=== PATIENT | female | born 1970 | race Caucasian/White ===

== ENCOUNTER → 2018-01-27 11:41 | Outpatient (CLI) | payer BC, SELFPAY ==
[2018-01-27 15:54] LABS: Estradiol < 11.0 pg/mL
[2018-01-27 16:03] LABS: Progesterone Level 19.34 ng/mL (See Comment)
[2018-02-02 08:55] LABS: HPV Reflexed? NOT INDICATED
== END ==
PROVIDERS: Family Provider Nurse Practitioner Family; PCP Nurse Practitioner Family; Visit Provider Obstetrics & Gynecology
DX: Z78.0 Asymptomatic menopausal state (principal); Z12.4 Encounter for screening for malignant neoplasm of cervix
CPT/HCPCS: 36415; 82670; 84144; 88175; G0145

== ENCOUNTER → 2018-05-27 07:25 | Outpatient (CLI) | payer BC, SELFPAY ==
--- NOTE | 2018-05-27 07:28 | BI_ITS ---
MAMMOGRAPHY - BILATERAL SCREENING REASON FOR EXAM: Female, 48 years old. Routine annual screening examination. PERTINENT HISTORY: Non-contributory. TECHNIQUE: Digital bilateral breast abner (3D mammographic acquisition) in the CC and MLO projections. 2-D mediolateral oblique (MLO) and craniocaudad (CC) views of both breasts were obtained. CAD: Full Field Digital Mammography with Computer Added Detection was performed. COMPARISON: Comparison is made with prior study dated May 19, 2017. FINDINGS: Breast Composition: The breasts are heterogeneously dense, which may obscure small masses. There are no dominant masses or suspicious calcifications. No other significant abnormalities are identified. There has been no significant change since the prior study. BI/SCREENING MAMM (CAD), BILAT IMPRESSION: Stable bilateral screening mammogram. Yearly follow-up mammogram recommended. (A) ASSESSMENT CATEGORY: BIRADS Category 1: Negative. A letter regarding these results will be sent to the patient by the facility within 30 days. Approximately 10% of breast cancers are not detected by mammography. A normal mammogram should not delay biopsy of a clinically suspicious abnormality. [id number] Electronically Signed: Yong Peterson MD at 10:22 EST , Service support ,
== END ==
PROVIDERS: Family Provider Nurse Practitioner Family; PCP Nurse Practitioner Family; Referring Provider Obstetrics & Gynecology; Visit Provider Obstetrics & Gynecology
DX: Z12.31 Encounter for screening mammogram for malignant neoplasm of breast (principal)
CPT/HCPCS: 77063; 77067

== ENCOUNTER → 2018-07-21 15:31 | Outpatient (CLI) | payer BC, SELFPAY | PROVIDERS: Family Provider Nurse Practitioner Family; PCP Nurse Practitioner Family; Referring Provider Otolaryngology Otolaryngology/Facial Plastic Surgery; Visit Provider Otolaryngology Otolaryngology/Facial Plastic Surgery | DX: J02.9 Acute pharyngitis, unspecified (principal); K12.1 Other forms of stomatitis | CPT/HCPCS: 87070 ==

== ENCOUNTER → 2019-05-31 | Outpatient (CLI) | payer OTHER, SELFPAY ==
--- NOTE | 2019-05-31 11:13 | BI_ITS ---
MAMMOGRAPHY - BILATERAL SCREENING REASON FOR EXAM: Female, 49 years old. Routine annual screening examination. PERTINENT HISTORY: Non-contributory. TECHNIQUE: Digital bilateral breast lina (3D mammographic acquisition) in the CC and MLO projections. 2-D mediolateral oblique (MLO) and craniocaudad (CC) views of both breasts were obtained. CAD: Full Field Digital Mammography with Computer Added Detection was performed. COMPARISON: Comparison is made with prior study dated May 27, 2018 and May 19, 2017. FINDINGS: Breast Composition: The breasts are heterogeneously dense, which may obscure small masses. There are no dominant masses or suspicious calcifications. No other significant abnormalities are identified. There has been no significant change since the prior study. BI/SCREEN MAMM (CAD) W/LINA BILAT IMPRESSION: Stable bilateral screening mammogram. Yearly follow-up mammogram recommended. (A) ASSESSMENT CATEGORY: BIRADS Category 1: Negative. A letter regarding these results will be sent to the patient by the facility within 30 days. Approximately 10% of breast cancers are not detected by mammography. A normal mammogram should not delay biopsy of a clinically suspicious abnormality. [id number] Electronically Signed: Yong Peterson, at 12:56 EST , Service support ,
== END | disposition home or self-care (01) ==
PROVIDERS: Family Provider Nurse Practitioner Family; PCP Nurse Practitioner Family; Referring Provider Obstetrics & Gynecology; Visit Provider Obstetrics & Gynecology
DX: Z12.31 Encounter for screening mammogram for malignant neoplasm of breast (principal)
CPT/HCPCS: 77063; 77067

== ENCOUNTER → 2020-07-06 07:15 | Outpatient (CLI) | payer OTHER, SELFPAY ==
--- NOTE | 2020-07-06 07:54 | BI_ITS ---
MAMMOGRAPHY - BILATERAL SCREENING REASON FOR EXAM: Female, 50 years old. Routine annual screening examination. PERTINENT HISTORY: Non-contributory. History of bilateral breast cysts. TECHNIQUE: Digital bilateral breast lina (3D mammographic acquisition) in the CC and MLO projections. 2-D mediolateral oblique (MLO) and craniocaudad (CC) views of both breasts were obtained. CAD: Full Field Digital Mammography with Computer Added Detection was performed. COMPARISON: Comparison is made with prior study dated 11/29/2019 and 05/27/2018. FINDINGS: Breast Composition: The breasts are heterogeneously dense, which may obscure small masses. There are no dominant masses or suspicious calcifications. Stable small benign appearing bilateral axillary nodes. No other significant abnormalities are identified. There has been no significant change since the prior study. BI/SCRN MAMM (CAD)W/LINA BILAT IMPRESSION: Stable bilateral screening mammogram. Yearly follow-up mammogram recommended. (A) ASSESSMENT CATEGORY: BIRADS Category 2: Benign. A letter regarding these results will be sent to the patient by the facility within 30 days. Approximately 10% of breast cancers are not detected by mammography. A normal mammogram should not delay biopsy of a clinically suspicious abnormality. [id number] Electronically Signed: Yong Peterson MD at 8:34 EST , Service support ,
== END ==
PROVIDERS: PCP Nurse Practitioner Family; Referring Provider Obstetrics & Gynecology; Visit Provider Obstetrics & Gynecology
DX: Z12.31 Encounter for screening mammogram for malignant neoplasm of breast (principal)
CPT/HCPCS: 77063; 77067

== ENCOUNTER 2021-07-19 10:25 | Outpatient (CLI) | payer OTHER, SELFPAY ==
--- NOTE | 2021-07-19 10:27 | BI_ITS ---
MAMMOGRAPHY - BILATERAL SCREENING 3-D TOMOSYNTHESIS REASON FOR EXAM: Female, 51 years old. SCREENING PERTINENT HISTORY: No significant family history. TECHNIQUE: 2-D mammograms and 3-D Tomosynthesis of the breast (s) were performed. CAD was performed. COMPARISON: 07/06/2020 FINDINGS: The breast composition is heterogeneously dense that can obscure small breast masses. Scattered benign calcifications are seen. No dominant mass in the right breast. 1 cm irregular obscured equal density mass in the lower outer quadrant of the left breast at mid depth and focal compression views recommended for further evaluation. No suspicious calcifications.. No architectural distortion is identified. There is no skin thickening or retraction. BI/SCRN MAMM (CAD)W/LINA BILAT IMPRESSION: 1 cm irregular scattered equal density mass in the lower outer quadrant of the left breast at mid depth on focal compression views are recommended for further evaluation. ASSESSMENT CATEGORY: BIRADS Category 0: Incomplete. Need additional imaging evaluation as above. A letter regarding these results will be sent to the patient by the facility within 30 days. FOLLOW UP RECOMMENDATION: Additional imaging recommended as above. (E) Approximately 10% of breast cancers are not detected by mammography. A normal mammogram should not delay biopsy of a clinically suspicious abnormality. Electronically Signed: Misha Holcomb MD at 13:26 EDT ,
== END 2021-07-19 23:59 | disposition home or self-care (01) ==
LOC: OPBI 10:26
PROVIDERS: PCP Nurse Practitioner Family; Referring Provider Obstetrics & Gynecology; Visit Provider Obstetrics & Gynecology
DX: Z12.31 Encounter for screening mammogram for malignant neoplasm of breast (principal)
CPT/HCPCS: 77063; 77067

== ENCOUNTER 2021-07-24 14:22 | Outpatient (CLI) | payer OTHER, SELFPAY ==
--- NOTE | 2021-07-24 14:25 | BI_ITS ---
MAMMOGRAPHY - UNILATERAL DIAGNOSTIC: LEFT BREAST REASON FOR EXAM: Female, 51 years old. Abnormal screening mammogram. PERTINENT HISTORY: Non-contributory. TECHNIQUE: Compression spot views of the left breast were obtained in the mediolateral oblique and craniocaudad projections.. CAD: Full Field Digital Mammography with Computer Added Detection was performed. COMPARISON: Comparison is made with prior examination dated 07/19/2021. FINDINGS: Breast Composition: The breasts are heterogeneously dense, which may obscure small masses. Persistent 6.9 mm nodular density in the inferior slightly lateral aspect of the breast. Correlation with ultrasound is recommended. No other significant abnormalities are identified. BI/DIAG MAMM W/CAD, UNILAT IMPRESSION: Persistent 6.9 mm nodular density in the inferior slightly lateral aspect of the breast. Correlation with ultrasound is recommended. ASSESSMENT CATEGORY: BIRADS Category 0: Incomplete. Need additional imaging evaluation. A letter regarding these results will be sent to the patient by the facility within 30 days. Approximately 10% of breast cancers are not detected by mammography. A normal mammogram should not delay biopsy of a clinically suspicious abnormality. Electronically Signed: Yong Peterson MD at 15:22 EDT ,
--- NOTE | 2021-07-24 14:25 | US_ITS ---
STUDY: ULTRASOUND BREAST - LEFT REASON FOR EXAM: Female, 51 years old. Abnormal screening mammogram. TECHNIQUE: Axial and longitudinal images of the LEFT breast were performed with a high resolution ultrasound transducer. # OF IMAGES: 29 COMPARISON: Comparison is made with prior mammogram dated 07/19/2021 and 07/24/2021. FINDINGS: LEFT Breast: The mammographic abnormality corresponds to a 6 mm x 4 mm x 4 mm cyst at the 7 o''clock position of the breast at 3 cm from nipple. US/Breast Limited Unilateral IMPRESSION: 6 mm x 4 mm x 4 mm cyst at the 7 o''clock position of the breast at 3 cm from the nipple. ASSESSMENT CATEGORY: BIRADS Category 2: Benign. A letter regarding these results will be sent to the patient by the facility within 30 days. Electronically Signed: Yong Peterson MD at 9:37 EDT ,
== END 2021-07-24 23:59 | disposition home or self-care (01) ==
LOC: OPBI 14:23
PROVIDERS: PCP Nurse Practitioner Family; Visit Provider Obstetrics & Gynecology
DX: R92.2 Inconclusive mammogram (principal)
CPT/HCPCS: 76642; 77065

== ENCOUNTER 2021-08-02 10:37 | Outpatient (CLI) | payer OTHER, SELFPAY ==
[2021-08-02 11:10] LABS: Hematocrit 40.7 % (37-47); Hemoglobin 13.8 g/dL (12.0-15.0); Mean Corp Hgb Conc 33.9 g/dL (32-36); Mean Corpuscular Hgb 31.7 pg (27.0-32.0); Mean Corpuscular Volume 93.6 fL (81-99); Mean Platelet Vol. 10.7 fl (6.2-12.0); Platelet Count 211 K/mm3 (150-450); RBC Distribution Width CV 13.3 % (11.6-14.6); RBC Distribution Width SD 45.6 fl (35.1-43.9); Red Blood Count 4.35 M/mm3 (4.2-5.4); White Blood Count 8.3 K/mm3 (4.4-11.0)
[2021-08-02 12:00] LABS: Cholesterol 190 mg/dL (200); High Density Lipoprotein 58 mg/dL; T4 Free Direct 0.96 ng/dL (0.76-1.46); Triglycerides 56 mg/dL; Very Low Density Lipoprotein 11 mg/dL (5-40)
[2021-08-02 12:03] LABS: Hemoglobin A1c 5.5 % (3.8-5.6)
== END 2021-08-02 23:59 | disposition home or self-care (01) ==
LOC: WOBLAB 10:38
PROVIDERS: PCP Nurse Practitioner Family; Visit Provider Obstetrics & Gynecology
DX: R53.83 Other fatigue (principal)
CPT/HCPCS: 36415; 80061; 83036; 84439; 84443; 85027

== ENCOUNTER → 2023-09-03 | Outpatient (CLI) | payer OTHER, SELFPAY ==
[2023-09-10 13:08] LABS: HPV APTIMA, High Risk Negative (Negative)
== END | disposition home or self-care (01) ==
PROVIDERS: PCP Nurse Practitioner Family; Referring Provider Nurse Practitioner Family; Visit Provider Nurse Practitioner Family
DX: Z12.4 Encounter for screening for malignant neoplasm of cervix (principal)
CPT/HCPCS: 87624; 88175; G0145

== ENCOUNTER → 2023-09-11 | Outpatient (CLI) | payer OTHER, SELFPAY ==
--- NOTE | 2023-09-11 12:40 | BI_ITS ---
MAMMOGRAPHY - BILATERAL SCREENING REASON FOR EXAM: Female, 53 years old. Routine annual screening examination. PERTINENT HISTORY: Non-contributory. TECHNIQUE: Digital bilateral breast lina (3D mammographic acquisition) in the CC and MLO projections. 2-D mediolateral oblique (MLO) and craniocaudad (CC) views of both breasts were obtained. CAD: Full Field Digital Mammography with Computer Added Detection was performed. COMPARISON: Comparison is made with prior study July 19, 2021 and July 24, 2021. FINDINGS: Breast Composition: The breasts are heterogeneously dense, which may obscure small masses. There are no dominant masses or suspicious calcifications. Stable 7 mm nodular density in the inferior slightly lateral aspect of the left breast. This was demonstrated to be a cyst on prior sonogram. No other significant abnormalities are identified. There has been no significant change since the prior study. BI/SCRN MAMM (CAD)W/LINA BILAT IMPRESSION: Stable bilateral screening mammogram. Yearly follow-up mammogram recommended. (A) ASSESSMENT CATEGORY: BIRADS Category 2: Benign. A letter regarding these results will be sent to the patient by the facility within 30 days. Approximately 10% of breast cancers are not detected by mammography. A normal mammogram should not delay biopsy of a clinically suspicious abnormality. [id number] Electronically Signed: Yong Peterson MD at 14:27 EDT ,
== END | disposition home or self-care (01) ==
LOC: OPBI 12:39
PROVIDERS: PCP Nurse Practitioner Family; Referring Provider Nurse Practitioner Family; Visit Provider Nurse Practitioner Family
DX: Z12.31 Encounter for screening mammogram for malignant neoplasm of breast (principal)
CPT/HCPCS: 77063; 77067

== ENCOUNTER → 2024-02-03 | Outpatient (CLI) | payer OTHER, SELFPAY | END | disposition home or self-care (01) | PROVIDERS: PCP Nurse Practitioner Family; Referring Provider Nurse Practitioner Family; Visit Provider Nurse Practitioner Family | DX: N94.89 Other specified conditions associated with female genital organs and menstrual cycle (principal) | CPT/HCPCS: 87086; 87088; 87186 ==

== ENCOUNTER → 2024-10-10 | Outpatient (CLI) | payer OTHER, SELFPAY ==
--- NOTE | 2024-10-10 16:00 | BI_ITS ---
EXAM: SCRN MAMM (CAD)W/LINA BILAT DATE: 10/10/2024 CLINICAL HISTORY: F, Age 54 y/o , SCREEN FOR BREAST CANCER BREAST CANCER RISK ASSESSMENT: Na TECHNIQUE: Bilateral screening digital breast tomosynthesis with 2D and 3D images. Computer aided detection. COMPARISON: Prior exam(s) were compared FINDINGS: TISSUE DENSITY: The breast tissue is heterogenously dense, which may obscure small masses. Bilateral Breast Mammographic Findings: No suspicious masses, calcifications or other abnormalities are identified. BI/SCRN MAMM (CAD)W/LINA BILAT IMPRESSION: OVERALL FINAL ASSESSMENT: BIRADS 1 NEGATIVE RECOMMENDATION: Routine annual follow-up in 1 Year A letter with findings and recommendations will be mailed to the patient. Reading Location: [id number]
--- NOTE | 2024-10-10 16:22 | CT_ITS ---
PROCEDURE: LOW DOSE CT LUNG SCREENING 10/10/2024 REASON FOR EXAM: LOW DOSE LUNG SCREEN TECHNIQUE: Low Dose CT Lung screening without contrast. Coronal and Sagittal reconstruction series were provided. One or more dose reduction techniques were used (e.g., Automated exposure control, adjustment of the mA and/or kV according to patient size, use of iterative reconstruction technique). REFERENCE LINK: [employer] Lung-RADS RADIATION DOSE SUMMARY: CTDlvol: 2.29 mGy DLP: 76.8 mGycm COMPARISON: None. FINDINGS: PULMONARY NODULES: (Only nodules >3mm are reported) Nodules described below are on series 2 unless otherwise specified. Moderate emphysema. Bilateral basilar atelectatic pulmonary changes. Normal unenhanced main pulmonary artery and right and left pulmonary arteries. Normal bilateral peripheral pulmonary arteries. Normal thoracic aorta and visualized great vessels. There is no demonstrated aortic aneurysm. Normal heart and pericardium. Normal mediastinum. Normal hilar regions. Normal visualized trachea and bronchi. The lungs are well expanded. Normal pulmonary parenchyma. Normal pleura. Diffuse spondylosis. Normal visualized upper abdomen. CT/Low Dose CT Lung Screening IMPRESSION: Moderate emphysema. Bilateral basilar atelectatic pulmonary changes. Coronary artery calcification (CAC) is is present Lung-RADS Category: 1 NEGATIVE. RECOMMEND 12-MONTH SCREENING LDCT. Other Significant Findings: None. Reading [facility] [id number]
--- OUTSIDE RECORDS SUMMARY | 2024-10-11 00:04 | XMS RPT_ITS | CCD ---
Author Organization [facility] Care Team Providers Care Knowledge Analyst Name Role Phone LINDA PUENTE MD. Attending Unavailable Jose Yadav October Referring Unavailab le Rohwer, Jose October Primary Care Unavailab le Rohwer, Jose October Primary Care Unavailab le Rohwer, Jose October Primary Care Unavailab le Rohwer, Jose October Primary Care Unavailab le Rohwer, Jose October Primary Care Unavailab laura Farnsworthter, Jose October Primary Care Unavailab Linda Nino Unavailable Unavailable Jose Yadav Unavailable Unavailable Linda Puente Unavailable Unavailable Radha Aguilar Unavailable Unavailable Jose Yadav Unavailable Unavailable Radha Aguilar Unavailable Unavailable Jose Yadav Unavailable Unavailable Linda Puente Unavailable Unavailable Radha Aguilar Unavailable Unavailable Jose Yadav Unavailable Unavailable Unavailable Joshua DENTAL BILLING SPECIALIST, DENTAL BILLING SPECIALIST-C Jose Primary Care Provider Joshua SOTO NP-C Jose Referring Provider [phone] HEIDY Abreu Attending Provider Joshua LEVEL VIAL INSIDE GRINDER-INNOVATIONS PARAPROFESSIONALJose Primary Care [facility] er JOSE YADAV Primary Care Unavailable RADHA BAILON Attending Unavailable Rohwer DENTAL BILLING SPECIALIST, Jose Primary Care Unavailable Rohwer DENTAL BILLING SPECIALIST, Jose Referring Unavailable Camelia Abreu Attending Unavailable Rohwer DENTAL BILLING SPECIALIST, Jose Primary Care Unavailable Camelia Abreu Referring Unavailable Camelia Abreu Attending Unavailable Rohwer DENTAL BILLING SPECIALIST, Jose Referring Unavailable Camelia Abreu Attending Unavailable Rohwer DENTAL BILLING SPECIALIST, Jose Primary Care Unavailable Joshua DENTAL BILLING SPECIALIST, Jose Referring Unavailable Camelia Abreu Attending Unavailable Joshua DENTAL BILLING SPECIALIST, Ojse Primary Care Unavailable Joshua DENTAL BILLING SPECIALIST, Jose Referring Unavailable Joshua DENTAL BILLING SPECIALIST, Jose [facility] Care Unavailable Camelia Abreu Attending Unavailable Joshua DENTAL BILLING SPECIALIST, Jose [facility] Care Unavailable Camelia Abreu Attending Unavailable Camelia Abreu Referring Unavailable Medications Current Medications Medication Drug Class(es) Dates Sig (Normalized) Sig (Original) busPIRone hydrochloride 5 mg oral tablet (1 source) Start: 09-03-2023 take 5 mg by mouth once daily Buspirone Active 5 MG PO DAILY September 03, 2023 12:00am DULoxetine 30 mg delayed release oral capsule (1 source) Serotonin and Norepinephrine Reuptake Inhibitor Start: 06-29-2024 take 1 capsule by mouth in the morning DULoxetine (Cymbalta) [address] capsule Take 1 capsule (30 mg) by mouth early in the morning.. 06/29/2024 Active erythromycin 0.005 mg/mg ophthalmic ointment (1 source) Macrolide, Macrolide Antimicrobial Start: 07-25-2024 End: 08-04-2024 erythromycin (Romycin) 5 mg/gram (0.5 %) ophthalmic ointment Indications: Eye pain, left Apply to left eye 3 times a day for [address] a 1/2 inch ribbon of ointment into the lower eyelid. 3.5 g 07/25/2024 08/04/2024 Active 120 actuat mometasone furoate 0.1 mg/actuat metered dose inhaler (1 source) Corticosteroid Start: 12-21-2023 take 2 puff(s) by inhalation twice daily as needed for cough Asmanex HFA 100 mcg/actuation HFA aerosol inhaler TAKE 2 PUFFS INHALED TWICE A DAY NEEDED FOR COUGH/WHEEZE RINSE MOUTH AFTER USE 12/21/2023 Active tetracaine hydrochloride 5 mg/ml ophthalmic solution (1 source) Marj Local Anesthetic Start: 07-25-2024 tetracaine (Altacaine) 0.5 % ophthalmic solution 1 drop Completed/Discontinued Medications Medication Drug Class(es) Dates Sig (Normalized) Sig (Original) progesterone 100 mg oral capsule (4 sources) Progesterone take 1 capsule by mouth at bedtime Progesterone 100 MG Oral Capsule TAKE 1 CAPSULE Bedtime Quantity: 0 Refills: 0 Ordered: 10-Sep-2018 DO Active Problems Active Problems Problem Classification Problem Date Documented Da te Episodic/Chronic Adjustment disorders (4 sources) Adjustment disorder with anxious mood; Translations: [Adjustment disorder with anxiety] Chronic Anxiety disorders (6 sources) Anxiety; Translations: [Anxiety state, unspecified] 09-03-2023 Chronic Chronic obstructive pulmonary disease and bronchiectasis (4 sources) Mild chronic obstructive pulmonary disease; Translations: [Chronic airway obstruction, not elsewhere classified] Chronic Malaise and fatigue (4 sources) Malaise and fatigue; Translations: [Other malaise and fatigue] Episodic Nonmalignant breast conditions (1 source) Breast lump; Translations: [Other (abnormal) findings on radiological examination of breast] Episodic Other eye disorders (1 source) Pain of left eye; Translations: [Ocular pain, left eye] 07-25-2024 Episodic Other eye disorders (2 sources) Ocular pain, left eye; Translations: [Ocular pain, left eye] Onset: 07-25-2024 Episodic Other lower respiratory disease (6 sources) Hypoxia; Translations: [Hypoxemia] Episodic Other lower respiratory disease (8 sources) History of chronic obstructive airway disease; Translations: [Personal history of other diseases of respiratory system] Episodic Other lower respiratory disease (4 sources) H/O: respiratory disease; Translations: [Personal history of other diseases of respiratory system] Episodic Other screening for suspected conditions (not mental disorders or infectious disease) (6 sources) Patient encounter status; Translations: [Special screening for malignant neoplasms of colon] Onset: 09-07-2024 Episodic Pleurisy; pneumothorax; pulmonary collapse (4 sources) Spontaneous tension pneumothorax; Translations: [Spontaneous tension pneumothorax] Episodic Residual codes; unclassified (2 sources) Hypoxia; Translations: [Idiopathic sleep related non-obstructive alveolar hypoventilation] Chronic Residual codes; unclassified (4 sources) Insomnia; Translations: [Insomnia, unspecified] Episodic Substance-related disorders (3 sources) Nicotine dependence; Translations: [Nicotine dependence, unspecified, uncomplicated] Onset: 09-07-2024 09-03-2023 Chronic Past or Other Problems Problem Classification Problem Date Documented Da te Episodic/Chronic Other female genital disorders (1 source) Other specified conditions associated with female genital organs and menstrual cycle; Translations: [Other specified conditions associated with female genital organs and menstrual cycle] Onset: 03-05-2024 Episodic Unclassified (1 source) Patient encounter status; Translations: [Screening for colon cancer] NEGATED: Highlighted row has not occurred!Residual codes; unclassified (6 sources) Disease Episodic Results Test Name Value Interpretation Reference Range Facility Safety And Health Consultant Office Visit Reporton 09-07-2024 Safety And Health Consultant Office Visit Report [facility] [address], [address] [place] [address] OFFICE VISIT Date of Service: 09/07/24 MR#: [id number] Acct: [id number] Name: JIA FRENCH Rep #: [id number] : 1970 Provider: HEIDY Ramirez Age/Sex: 54/F Location: [facility] [place] Status: Signed with Addenda ADDENDUM by HEIDY Abreu on 10/06/24 at 1152 Assessment and Plan Assessment and Plan (1) Vaginal Pap smear with ASC-US: Status: Acute Comment: negative HPV; ASCCP guidelines reviewed; repeat 3 year. (2) Nicotine dependence: Status: Acute Comment: Not ready to quit; 1 ppd x30+yrs (3) Anxiety: Status: Acute Comment: repeat WILD-7 completed today; score of 12 prior, 17; today (02/02) WILD-7 at score of 5. (4) Elevated BP without diagnosis of hypertension: Status: Acute Comment: smoked right before visit Orders: Orders SCRN MAMM (CAD)W/LINA BILAT 10/10/24 Z12.31 - Encounter for screening mammogram for malignant neoplasm of breast Chest without Contrast 09/07/24 F17.200 - Nicotine dependence, unspecified, uncomplicated, Z12.2 - Encounter for screening for malignant neoplasm of respiratory organs 10/06/24 1152 Date Camelia Abreu cc: * Signed Intake Vital Signs 02/03/24 13:04 09/07/24 14:08 Height 5 ft 7 in 5 ft 7 in Weight: 137 lb 6 oz BMI 21.5 BP 150/90 H 156/91 H Blood Pressure Location Lt brachial Position Sitting Intake Visit Reasons: Annual (SCREW DOWN) Gear Inspector Required: No Is patient in pain?: No Allergies No Known Allergies Allergy (Verified 09/07/24 14:06) Medications ???Medication ???Instructions ???Recorded ???Confirmed ???Type duloxetine 30 mg capsule,delayed 30 mg PO QDAY 30 days #30 caps 11/2509/07/24 Rx release Post menopausal: No PFSH Medical History Anxiety Surgical History Status post surgical removal of malignant neoplasm of skin Family History Mother Lupus Social History adopted: No household members: children number of children: 3 current occupational status: employed current occupation: Director Security Management current occupational exposures/hazards: No pets and animals: No history of recent travel: No sexually active: Yes Smoking Status: Current every day smoker second hand exposure: Yes quit status: not considering quitting well-balanced diet: daily or most days caffeine: Yes eating out: rarely or never during the past year weight has: remained stable frequency: daily duration: 60-90 minutes/day seatbelt use: always do you feel safe at home: Yes History 3 Elective abortions Hx Para Spontaneous abortions Hx # Term Pregnancies Ectopic pregnancies Hx # Pregnancies Multiple births # of living children Past Pregnancies Del. Date Name GA/Weeks Outcome Route Bth Weight Gen Labor Lgth Anesthesia Del Locatn Provider FOB Unknown Mery 1987 Unknown Bereket 1990 Unknown Slime2000 [facility] Encounter for routine gynecological examination Details: JIA FRENCH is a 54 year old who presents for annual exam. She reports she is doing well; continues with cymbalta and doing well with this. She reports she is taking compliantly; will need refills. Previous PAP was ASCUS/negative HPV. She has been a 30 year smoker--has not had low dose ct scan screening. Last PAP: 2023; ASCUS. HPV neg. History of abnormal PAP: ASCUS 2023 Last mammogram: 2023; normal. History of abnormal mammogram: no. Colon cancer screenin; normal per patient. Other preventative health care screenings: Jose Yadav; PCP. Female Reproductive History Questions: metorrhagia: No, sexually active: Yes, dyspareunia: No and PCB: No Date of menopause: 07/02/18 ROS Const Constitutional: Denies chills, fatigue, fever(s), headache(s) or weight loss Eyes Eyes: Denies change in vision ENT ENT: Denies dizziness Resp Resp: Denies cough GI GI: Denies abdominal pain, constipation or nausea : Denies difficulty voiding, dysuria, hematuria, pelvic pain, prolapse symptoms, urinary incontinence, vaginal discharge, vaginal dryness, vaginal odor or vaginal pruritus Skin Skin/Breast: Denies alopecia or rash Neuro Neuro: Denies dizziness Psych Psych: Denies anxiety or depression Endo Endo: Denies cold intolerance, excessive sweating or heat intolerance Exam Const General: cooperative, healthy appearing, comfortable, no acute distress, well groomed and well hydrated Nutritional Appearance: well nourished Orientation: alert, awake and oriented (more content not included)... Normal [facility] Urine Cultureon 02-05-2024 URC Presumptive E. coli Filion Count >100,000 Presumptive E. coli: REACTION Ampicillin Islt OLIMPIA 4 Ampicillin+Sulbac Islt OLIMPIA <=2 S ceFAZolin Islt OLIMPIA <=4 S Cefepime Islt OLIMPIA <=0.12 S cefTRIAXone Islt OLIMPIA <=0.25 S Ciprofloxacin Islt OLIMPIA <=0.25 S B-Lactamase Extended Susc Islt NEG Gentamicin Islt OLIMPIA <=1 S Imipenem Islt OLIMPIA <=0.25 S levoFLOXacin Islt OLIMPIA <=0.12 S Nitrofurantoin Islt OLIMPIA <=16 S Pip+Tazo Islt OLIMPIA <=4 S Tobramycin Islt OLIMPIA <=1 S TMP SMX Islt OLIMPIA <=20 S Normal [facility] Comment on above: Performed By: #### M [phone] #### [facility] [address] [place], [address] Safety And Health Consultant Office Visit Reporton 02-03-2024 Safety And Health Consultant Office Visit Report [facility] [address], [address] [place] [address] OFFICE VISIT Date of Service: 02/03/24 MR#: [id number] Acct: [id number] Name: JIA FRENCH Rep #: [id number] : 1970 Provider: HEIDY Ramirez Age/Sex: 53/F Location: [facility] [place] Status: Signed Intake Vital Signs 01/14/24 12:56 02/03/24 13:03 02/03/24 13:04 Height 5 ft 7 in 5 ft 7 in 5 ft 7 in Weight: 138 lb BMI 21.6 BP 152/89 H 160/81 H 150/90 H Blood Pressure Location Lt brachial Position Sitting Intake Visit Reasons: 3 WK FU Chief Complaint: 3 week fu Gear Inspector Required: No Is patient in pain?: No Allergies No Known Allergies Allergy (Verified 02/03/24 13:03) Medications ???Medication ???Instructions ???Recorded ???Confirmed ???Type cephalexin 500 mg tablet 500 mg PO BID 5 days #10 tabs 02/03/24 02/03/24 Rx duloxetine 30 mg capsule,delayed 30 mg PO QDAY 30 days #30 caps 02/03/24 02/03/24 Rx release Is last menstrual period known: No Post menopausal: No Patient : No : No PFSH Medical History Anxiety Surgical History Status post surgical removal of malignant neoplasm of skin Family History Mother Lupus Social History adopted: No household members: children number of children: 3 current occupational status: employed current occupation: Director Security Management current occupational exposures/hazards: No pets and animals: No history of recent travel: No sexually active: Yes Smoking Status: Current every day smoker second hand exposure: Yes quit status: not considering quitting well-balanced diet: daily or most days caffeine: Yes eating out: rarely or never during the past year weight has: remained stable frequency: daily duration: 60-90 minutes/day seatbelt use: always do you feel safe at home: Yes HPI 3 WK FU Details: JIA FRENCH is a 53 year old who presents for follow up med check after starting cymbalta; she reports she feels a little improvement in her symptoms. She reports she no longer is having headaches. She reports her anxiety is a little improved as well. She reports on Thursday she noticed burning with urination, blood in her urine when she voided, pressure in her pelvis as well as frequency. History 3 Elective abortions Hx Para Spontaneous abortions Hx # Term Pregnancies Ectopic pregnancies Hx # Pregnancies Multiple births # of living children Past Pregnancies Del. Date Name GA/Weeks Outcome Route Bth Weight Infant Gen Labor Lgth Anesthesia Del Locatn Provider FOB Unknown Mery 1987 Unknown [place]re[place] 1990 Unknown Slime2000 ROS Const Constitutional: Denies body ache, chills, fatigue, fever(s) or headache(s) Cardio Card: Denies chest pain, chest pain at rest or palpitations Resp Resp: Denies cough or dyspnea GI GI: Denies constipation : Reports hematuria (one occasion), pelvic pain, urinary frequency, urinary hesitancy, urinary urgency and other (denies vaginal bleeding); Denies vaginal discharge, vaginal dryness, vaginal odor or vaginal pruritus Exam Const General: cooperative, healthy appearing, comfortable, no acute distress, well groomed and well hydrated Nutritional Appearance: well nourished Orientation: alert, awake and oriented x3 HENMT Head: normal to inspection and normocephalic Ears: hearing grossly normal bilaterally and external ears normal Nose: external nose normal Face and sinus: normal facial exam Eyes General: appearance normal, both eyes and all related structures Resp Effort Inspection: normal respiratory effort, able to speak in complete sentences and symmetric chest movement Auscultation: clear to auscultation bilaterally Cardio Rate: regular rate Rhythm: regular rhythm Heart Sounds: S1 normal and S2 normal Neuro General: patient alert, patient awake, patient oriented x3 and moves all extremities Speech: speech normal Psych Appearance: well kempt Mental Status: mental status grossly normal Mood: anxious mood Affect: anxious affect Speech and Movement: speech and movement normal Attitude: cooperative Results POC Urinalysis Dip (Clinic) Office Urine Color Yellow Last Edit by Slime Thompson on 02/03/24 13:20 Office Urine Clarity Clear Last Edit by Slime Thompson on 02/03/24 13:20 Office Urine Glucose Negative Last Edit by Slime Thompson on 02/03/24 13:20 Office Urine Ketones Negative Last Edit by Slime Thompson on 02/03/24 13:20 Off Ur Spec [place] 1.025 Last Edit by Slime Thompson on 02/03/24 13:20 Office Urine pH 5 Last Edit by Slime Thompson (more content not included)... Normal [facility] Safety And Health Consultant Office Visit Reporton 01-14-2024 Safety And Health Consultant Office Visit Report [facility] [address], [address] [place] [address] OFFICE VISIT Date of Service: 01/14/24 MR#: [id number] Acct: [id number] Name: JIA FRENCH Rep #: [id number] : 1970 Provider: HEIDY Ramirez Age/Sex: 53/F Location: [facility] [place] Status: Signed Intake Vital Signs 10/14/23 13:00 01/14/24 12:55 01/14/24 12:56 Height 5 ft 7 in 5 ft 7 in Weight: 147 lb BP 149/83 H 152/89 H Intake Visit Reasons: 3 M FU Chief Complaint: med check Gear Inspector Required: No Is patient in pain?: No Allergies No Known Allergies Allergy (Unverified 01/14/24 12:55) Medications ???Medication ???Instructions ???Recorded ???Confirmed ???Type duloxetine 20 mg capsule,delayed 20 mg PO QDAY 30 days #30 caps 01/14/24 01/14/24 Rx release (Cymbalta) Is last menstrual period known: No Post menopausal: No Patient : No : No PFSH Medical History Anxiety Surgical History Status post surgical removal of malignant neoplasm of skin Family History Mother Lupus Social History adopted: No household members: children number of children: 3 current occupational status: employed current occupation: Director Security Management current occupational exposures/hazards: No pets and animals: No history of recent travel: No sexually active: Yes Smoking Status: Current every day smoker second hand exposure: Yes quit status: not considering quitting well-balanced diet: daily or most days caffeine: Yes eating out: rarely or never during the past year weight has: remained stable frequency: daily duration: 60-90 minutes/day seatbelt use: always do you feel safe at home: Yes HPI 3 M FU Details: JIA FRENCH is a 53 year old who presents for medication follow up. She has been taking Buspar 7.5mg BID. She reports she has been taking 5mg BID as her previous script ran out. She reports she i s not happy with the medication at this time and does not feel like it is working for her. She reports nausea and a headache that is pounding at times. Does not have those symptoms today. She did not notice this prior to starting Buspar. She reports she feels on edge today. History 3 Elective abortions Hx Para Spontaneous abortions Hx # Term Pregnancies Ectopic pregnancies Hx # Pregnancies Multiple births # of living children Past Pregnancies Del. Date Name GA/Weeks Outcome Route Bth Weight Gen Labor Lgth Anesthesia Del Locat Provider FOB Unknown Mery 1987 Unknown [place] 1990 Unknown Slime 2000 Exam Const General: cooperative, healthy appearing, comfortable, no acute distress, well groomed and well hydrated Nutritional Appearance: well nourished Orientation: alert, awake and oriented x3 HENMT Head: normal to inspection and normocephalic Ears: hearing grossly normal bilaterally and external ears normal Nose: external nose normal Face and sinus: normal facial exam Eyes General: appearance normal, both eyes and all related structures Resp Effort Inspection: normal respiratory effort, able to speak in complete sentences and symmetric chest movement Auscultation: clear to auscultation bilaterally Cardio Rate: regular rate Rhythm: regular rhythm Heart Sounds: S1 normal and S2 normal Neuro General: patient alert, patient awake, patient oriented x3 and moves all extremities Speech: speech normal Psych Appearance: well kempt Mental Status: mental status grossly normal Mood: anxious mood Affect: anxious affect Speech and Movement: speech and movement normal Attitude: cooperative Coding Level of Care Code Established Pt Off vis,est,level 3 Patient Type Established Diagnoses Anxiety F41.9 Elevated BP without diagnosis of hypertension R03.0 Assessment and Plan Assessment and Plan (1) Anxiety: Status: Acute Comment: repeat WILD-7 completed today; score of 12 prior, today 17; Moderate-severe level. PHQ-9:7 Plan: Discussed titration of Buspirone; she has only been on 5mg and I feel she is okay to stop today. Will start cymbalta low dose. She if this is tolerated better. Side effects advised. (2) Elevated BP without diagnosis of hypertension: Plan: Concern with her BP reading today. Could be anxiety related; advise close monitoring at home with BP cuff. Parameters greater than 140/90 is potential CVA/ID range and needs to be followed up on. Recommended close follow up with PCP for eval. and management. She is agreeable and call to schedule Discussed concerning signs/symptoms that would warrant evaluation (more content not included)... Normal [facility] Safety And Health Consultant Office Visit Reporton 10-14-2023 Safety And Health Consultant Office Visit Report [facility] [address] [place] [address] OFFICE VISIT Date of Service: 10/14/23 MR#: [id number] Acct: [id number] Name: JIA FRENCH Rep #: [id number] : 1970 Provider: HEIDY Ramirez Age/Sex: 53/F Location: [facility] [place] Status: Signed Intake Vital Signs 09/03/23 13:02 10/14/23 12:57 10/14/23 13:00 Height 5 ft 7 in 5 ft 7 in 5 ft 7 in Weight: 136 lb 8 oz 139 lb 6 oz BMI 21.4 21.8 BP 132/80 H 117/72 Intake Visit Reasons: 6 WK MED CHK Chief Complaint: 6 Week Med check Gear Inspector Required: No Is patient in pain?: No Allergies No Known Allergies Allergy (Unverified 10/14/23 12:56) Medications ???Medication ???Instructions ???Recorded ???Confirmed ???Type buspirone 5 mg tablet 5 mg PO DAILY 30 days #30 tabs 09/03/23 10/14/23 Rx Is last menstrual period known: No Post menopausal: Yes Patient : No : No PFSH Medical History Anxiety Surgical History Status post surgical removal of malignant neoplasm of skin Family History Mother Lupus Social History adopted: No household members: children number of children: 3 current occupational status: employed current occupation: Director Security Management current occupational exposures/hazards: No pets and animals: No history of recent travel: No sexually active: Yes Smoking Status: Current every day smoker second hand exposure: Yes quit status: not considering quitting well-balanced diet: daily or most days caffeine: Yes eating out: rarely or never during the past year weight has: remained stable frequency: daily duration: 60-90 minutes/day seatbelt use: always do you feel safe at home: Yes HPI 6 WK MED CHK Details: JIA FRENCH is a 53 year old who presents for 6 week medication follow up. She is on Buspar 5mg once a day. She reports no side effects. Denies dizziness, chest pain, shortness of breath, nausea, vision changes. She does not feel a whole lot different with medication and feels anxiety on a daily basis typically. History 3 Elective abortions Hx Para Spontaneous abortions Hx # Term Pregnancies Ectopic pregnancies Hx # Pregnancies Multiple births # of living children Past Pregnancies Del. Date Name GA/Weeks Outcome Route Bth Weight Infant Gen Labor Lgth Anesthesia Del [facility] Provider FOB Unknown Mery 1987 Unknown Bere[place] 1990 Unknown Slime 2000 ROS Const ROS Unobtainable: All systems reviewed are unremarkable except as noted in H Exam Const General: cooperative, healthy appearing, comfortable, no acute distress, well groomed and well hydrated Nutritional Appearance: well nourished Orientation: alert, awake and oriented x3 HENMT Head: normal to inspection and normocephalic Ears: hearing grossly normal bilaterally and external ears normal Nose: external nose normal Face and sinus: normal facial exam Eyes General: appearance normal, both eyes and all related structures Resp Effort Inspection: normal respiratory effort, able to speak in complete sentences and symmetric chest movement Neuro General: patient alert, patient awake, patient oriented x3 and moves all extremities Speech: speech normal Psych Appearance: well kempt Mental Status: mental status grossly normal Mood: anxious mood Affect: anxious affect Speech and Movement: speech and movement normal Attitude: cooperative Coding Level of Care Code Established Pt Off vis,est,level 3 Patient Type Established Diagnoses Anxiety F41.9 Vaginal Pap smear with ASC-US R87.620 Assessment and Plan Assessment and Plan (1) Anxiety: Status: Acute Comment: WILD-7 completed today; score of 12. Moderate level. Plan: Increase Buspar to 7.5mg BID. Side effects discussed. Again advise counselling. Call office with questions or concerns. Follow up 3 months for med check and continued evaluation. (2) Vaginal Pap smear with ASC-US: Status: Acute Plan: Discussed PAP smear results and reviewed current ASCCP guidelines. Although recommendations are 3 yr; Advise that we repeat PAP with HPV testing in 1 year in order to confirm endocervical component. Patient agreeable to plan. 10/14/23 1328 Date Camelia MOODY Cosigner Signature: Date (if applicable) CC: Normal [facility] Cervical or vaginal specimen microscopic examination by liquid based cytology (reportOrdered By: Camelia Abreu on 09-03-2023 Cytology report Cyto stain.thin prep Doc (Cvx/Vag) Comment . [facility] Comment on above: Criteria not met, HP V Genotype not performed.Performed at: - [address] [id number] Director: Xuan Pardo MD, Phone: [phone] at: =G - [facility] [id number] Director: Xuan Pardo MD, Phone: [phone] Cervical or vagninal specime n microscopic examination by cytology stain (reported asOrdered By: Camelia Abreu on 09-03-2023 Cytology report Cyto stain Doc (Cvx/Vag) Comment . [facility] Comment on above: The Pap smear is a s creening test designed to aid in thedetection of premalignant and malignant conditions of theuterine cervix. It is not a diagnostic procedure andshould not be used as the sole means of detecting cervicalcancer. Both false-positive and false-negative reports dooccur. Detection in cervical specim en of any of human papilloma virus (HPV) 16, 18, 31, 33,Ordered By: Camelia Abreu on 09-03-2023 HPV 16+18+31+33+35+39+45+51 +52+56+58+59+66+68 DNA Probe+sig amp Ql (Cvx) Negative Negative [facility] Comment on above: This nucleic acid am plification test detects fourteen high-risk HPV types (16,18,31,33,35,39,45,51,52,56,58,59,66,68)without differentiation. Laboratory - CytologyOrdered By: Camelia Abreu on 09-03-2023 Professor Of Engineering Cyto stain Nom (Cvx/Vag) [ID] Comment . [facility] Comment on above: Shaun Akers, Cyto technologist (ASCP) Pathologist Cyto stain Nom (Cvx/Vag) [ID] Comment . [facility] Comment on above: Sarah Man MD, P athologist Laboratory - Miscellaneous t estsOrdered By: Camelia Abreu on 09-03-2023 Service comment (Unsp spec) [Interp] . . [facility] No Panel InformationOrdered By: Camelia Abreu on 09-03-2023 Pathology report final diagnosis Narrative Comment . [facility] Comment on above: R87.610 Thin prep Papanicolaou smear with manual screeningOrdered By: Camelia Abreu on 09-03-2023 Thin prep Papanicolaou smear with manual screening Comment . [facility] Comment on above: EPITHELIAL CELL ABNO RMALITY.ATYPICAL SQUAMOUS CELLS OF UNDETERMINED SIGNIFICANCE (ASC-US). This liquid based Th inPrep(R) pap test was screened withthe use of an image guided system. Basophil percentageon 2021 Cholesterol [Mass/Vol] 190 mg/dL <200 [facility] Work Phone: Comment on above: <200 mg/dL Desirable 200-240 mg/dL Borderline >240 mg/dL High Risk Triglyceride [Mass/Vol] 56 mg/dL [facility] Work Phone: Comment on above: The drugs N-Acetylcy steine and Metamizole may falsely depress this assay.Serum Triglycerides Reference Interval Normal <150 mg/dL Borderline high 150 - 199 mg/dL High 200 - 499 mg/dL Very High > or = 500 mg/dL WBC (Bld) [#/Vol] 8.3 10*3/uL 4.4-11.0 [facility] Work Phone: Blood erythrocytes count (nu mber/volume)on 08-02-2021 RBC (Bld) [#/Vol] 4.35 10*6/uL 4.2-5.4 [facility] Work Phone: Blood hemoglobin measurement (mass/volume)on 08-02-2021 Hemoglobin (Bld) [Mass/Vol] 13.8 g/dL 12.0-15.0 [facility] Work Phone: Blood platelet mean volumeon 08-02-2021 Platelet mean volume (Bld) [Entitic vol] 10.7 fL 6.2-12.0 [facility] Work Phone: Determination of erythrocyte mean corpuscular volume (MCV)on 08-02-2021 MCV (RBC) [Entitic vol] 93.6 fL 81-99 [facility] Work Phone: Hematocrit Auto (Bld) [Volum e fraction]on 08-02-2021 Hematocrit (Bld) [Volume fraction] 40.7 % 37-47 [facility] Work Phone: Laboratory - Chemistry and C hemistry - challengeon 08-02-2021 Free T4 [Mass/Vol] 0.96 ng/dL 0.76-1.46 [facility] Work Phone: Laboratory - Hematology and Cell countson 08-02-2021 Erythrocyte distribution width (RBC) [Entitic vol] 45.6 fL 35.1-43.9 [facility] Work Phone: Erythrocyte distribution width (RBC) [Ratio] 13.3 % 11.6-14.6 [facility] Phone: MCH (RBC) [Entitic mass] 31.7 pg 27.0-32.0 [facility] Work Phone: MCHC Auto (RBC) [Mass/Vol]on 08-02-2021 MCHC (RBC) [Mass/Vol] 33.9 g/dL 32-36 [facility] Work Phone: No Panel Informationon 08-02 Thyroid Stimulating Hormone (TSH) 0.80 uIU/mL 0.358-3.74 [facility] Work Phone: Platelets bldon 08-02-2021 Platelets (Bld) [#/Vol] 211 10*3/uL 150-450 [facility] Work Phone: Serum or plasma cholesterol in HDL measurement (mass/volume)on 08-02-2021 Cholesterol in HDL [Mass/Vol] 58 mg/dL [facility] Work Phone: Comment on above: The drugs N-Acetylcy steine and Metamizole may falsely depress this assay. Reference Range HDL <40 mg/dL Low HDL Cholesterol HDL >or= 60 mg/dL High HDL Cholesterol Serum or plasma cholesterol in VLDL measurement (mass/volume)on 08-02-2021 Cholesterol in VLDL [Mass/Vol] 11 mg/dL 5-40 [facility] Work Phone: Serum or plasma low density lipoprotein (LDL) cholesterol measurement (mass/volume)on 08-02-2021 Cholesterol in LDL [Mass/Vol] 121 mg/dL 0-130 [facility] Work Phone: Whole blood hemoglobin A1c/t otal hemoglobin ratio (mass fraction)on 08-02-2021 HbA1c (Bld) [Mass fraction] 5.5 % 3.8-5.6 [facility] Work Phone: Comment on above: Normal < 5.7 % Predi abetic 5.7 - 6.4 % Diabetic >or= 6.5 % Please note range changes. Auto Diffon 10-18-2018 Basophils #/vol (Bld) 0.1 E3/mcL Normal 0.0-0.2 [facility] Comment on above: Order Comment: Order Added by Discern Expert. Performed By: #### 2 [id number] #### VIVIANA RemHemo [address] [place] [address] Basophils/100 WBC (Bld) 0.7 % Normal 0.0-2.0 [facility] Comment on above: Order Comment: Order Added by Discern Expert. Performed By: #### 2 [id number] #### VIVIANA RemHemo [address] [place] [address] Eos Absolute 0.0 E3/mcL Normal 0.0-0.7 [facility] Comment on above: Order Comment: Order Added by Discern Expert. Performed By: #### 2 [id number] #### VIVIANA RemHemo [address] [place] [address] Eosinophils/100 WBC (Bld) 0.6 % Normal 0.0-11.0 [facility] Comment on above: Order Comment: Order Added by Discern Expert. Performed By: #### 2 [id number] #### VIVIANA RemHemo [address] [place] [address] Lymphocytes #/vol (Bld) 1.1 E3/mcL Low 1.2-3.4 [facility] Comment on above: Order Comment: Order Added by Discern Expert. Performed By: #### 2 [id number] #### VIVIANA RemHemo [address] [place] [address] Lymphocytes/100 WBC (Bld) 13.4 % Low 20.0-55.0 [facility] Comment on above: Order Comment: Order Added by Discern Expert. Performed By: #### 2 [id number] #### VIVIANA RemHemo [address] [place] [address] Vigo Absolute 0.5 E3/mcL Normal 0.0-0.7 [facility] Comment on above: Order Comment: Order Added by Discern Expert. Performed By: #### 2 [id number] #### VIVIANA RemHemo [address] [place] [address] Monocytes/100 WBC (Bld) 5.8 % Normal 0.0-10.0 [facility] Comment on above: Order Comment: Order Added by Discern Expert. Performed By: #### 2 [id number] #### VIVIANA MendozaHemo [address] [place] [address] Neutro Absolute 6.8 E3/mcL High 1.4-6.5 [facility] Comment on above: Order Comment: Order Added by Discern Expert. Performed By: #### 2 887104 #### VIVIANA MendozaHemo [address] [place] [address] Neutro Auto 79.5 % High 37.0-75.0 [facility] Comment on above: Order Comment: Order Added by Discern Expert. Performed By: #### 2 [id number] #### VIVIANA MendozaHemo [address] [place] [address] BMPon 10-18-2018 Anion gap molar conc 13 mmol/L Normal 10-20 [facility] Comment on above: Performed By: #### 2 [id number] #### VIVIANA MendozaHemo [address] [place] [address] Calcium mass conc 9.2 mg/dL Normal 8.6-10.3 [facility] Comment on above: Performed By: #### 2 [id number] #### VIVIANA MendozaHemo [address] [place] [address] Chloride molar conc 108 mmol/L High 98-107 [facility] Comment on above: Performed By: #### 2 176386 #### VIVIANA MendozaHemo [address] [place] [address] CO2 molar conc 22.0 mmol/L Normal 21.0-32.0 [facility] Comment on above: Performed By: #### 2 349111 #### VIVIANA RemHemo [address] [place] [address] Creatinine mass conc 0.8 mg/dL Normal 0.5-1.1 [facility] Comment on above: Performed By: #### 2 868856 #### VIVIANA RemHemo [address] [place] [address] Glucose mass conc 99 mg/dL Normal 70-99 [facility] Comment on above: Performed By: #### 2 061597 #### VIVIANA RemHemo [address] [place] [address] Potassium molar conc 4.0 mmol/L Normal 3.5-5.3 [facility] Comment on above: Performed By: #### 2 305777 #### VIVIANA Perezo [address] [place] [address] Sodium molar conc 139 mmol/L Normal 136-145 [facility] Comment on above: Performed By: #### 2 393881 #### VIVIANA Perezo [facility] [place] [address] Urea nitrogen mass conc 11 mg/dL Normal 6-23 [facility] Comment on above: Performed By: #### 2 940873 #### VIVIANA Perezo [facility] [place] [address] Urea nitrogen/Creatinine mass ratio 13.8 ratio Normal 5.4-30.0 [facility] Comment on above: Performed By: #### 2 112171 #### VIVIANA [address] [address] CBC w/ Auto Diffon 9 Erythrocyte distribution width Ratio (RBC) 13.7 % Normal 11.5-14.5 [facility] Comment on above: Performed By: #### 2 470277 #### VIIVANA Perezo [address] [place] [address] Hematocrit Volume Fraction (Bld) 43.6 % Normal 36.0-48.0 [facility] Comment on above: Performed By: #### 2 742355 #### VIVIANA Perezo [address] [place] [address] Hemoglobin mass conc (Bld) 14.8 g/dL Normal 12.0-16.0 [facility] Comment on above: Performed By: #### 2 373822 #### VIVIANA MendozaHemo [address] [place] [address] MCH Entitic mass (RBC) 32.6 pg High 27.0-31.0 [facility] Comment on above: Performed By: #### 2 156626 #### VIVIANA MendozaHemo [address] [place] [address] MCHC mass conc (RBC) 33.9 g/dL Normal 33.0-37.0 [facility] Comment on above: Performed By: #### 2 100951 #### VIVIANA RemHemo [address] [place] [address] MCV Entitic volume (RBC) 96.0 fL Normal 78.0-100.0 [facility] Comment on above: Performed By: #### 2 503752 #### VIVIANA RemHemo [address] [place] [address] Platelet mean volume Entitic volume (Bld) 9.4 fL Normal 7.4-11.0 [facility] Comment on above: Performed By: #### 2 601381 #### VIVIANA RemHemo [address] [place] [address] Platelets #/vol (Bld) 194 E3/mcL Normal 130-400 [facility] Comment on above: Performed By: #### 2 [id number] #### VIVIANA RemHemo [address] [place] [address] RBC #/vol (Bld) 4.54 E6/mcL Normal 3.90-5.40 [facility] Comment on above: Performed By: #### 2 869978 #### VIVIANA RemHemo [address] [place] [address] WBC #/vol (Bld) 8.5 E3/mcL Normal 3.6-11.0 [facility] Comment on above: Performed By: #### 2 588337 #### VIVIANA RemHemo [address] [place] [address] Troponin-Ion 10-18-2018 Troponin I.cardiac mass conc 0.01 ng/mL Normal 0.00-0.03 [facility] Comment on above: Performed By: #### 2 [id number] #### VIVIANA RemHemo [address] [place] [address] XR Ribs w/ PA Chest Lefton 0 10-18-2018 XR Ribs w/ PA Chest Left Exam Date/Time: 10/18/2018 11:40 EDT Reason for Exam: Pain, Non Traumatic Report STUDY: XR Ribs w/ PA Chest Left; 10/18/2018 11:40 am INDICATION: Pain, Non Traumatic. COMPARISON: Chest x-ray 11/18/2016 ACCESSION NUMBER(S): [id number] ORDERING CLINICIAN: Ezekiel Youssef FINDINGS: Frontal view of the chest and four views of the left ribs obtained. Artifact from overlying monitoring leads noted. No focal infiltrate, pleural effusion or pneumothorax on frontal view of the chest. Probable hyperinflation and biapical pleural thickening are similar to the prior exam. Area of clinical concern is not indicated. No definite acute displaced left rib fracture identified. IMPRESSION: No acute displaced left rib fracture identified. No acute cardiopulmonary process on frontal view of the chest. FINAL REPORT Dictated: 10/18/2018 11:48 am Indigo Chaudhary MD Signed (Electronic Signature): 10/18/2018 11:48 am Signed by: Indigo Chaudhary MD Technologist: HLL Normal [facility] eGFRon 10-18-2018 GFR/1.73 sq M predicted among non-blacks MDRD vol rate/area (S/P/Bld) mL/min/{1.73_m2} Normal [facility] Comment on above: Order Comment: Order Added by Discern Expert. Performed By: #### 2 [id number] #### VIVIANA RemHemo [address] [place] [address] Basic Metabolic Panlon 09-29 Anion gap molar conc 12 mmol/L Normal 9-18 [facility] Comment on above: Performed By: #### E VIT, LMLATE, B1WB #### [facility] [address] [place] [phone] #### BMP #### [place] [address] #### B3VIT #### [facility] Reference [address] [place] [phone] #### VITB6 #### [facility] [address] [place] [address] [phone] Calcium mass conc 9.1 mg/dL Normal 8.5-10.5 [facility] Comment on above: Performed By: #### E VIT, LMLATE, B1WB #### [facility] [address] [place] [phone] #### BMP #### [place] [phone] #### B3VIT #### [facility] [address] [place] [phone] #### VITB6 #### [facility] [address] [place] [address] [phone] Chloride molar conc 105 mmol/L Normal 98-110 [facility] Comment on above: Performed By: #### E VIT, LMLATE, B1WB #### [facility] [address] [place] [phone] #### BMP #### [place] [phone] #### B3VIT #### [facility] [address] [phone] #### VITB6 #### [address] [address] [phone] CO2 molar conc 25 mmol/L Normal 23-32 [facility] Comment on above: Performed By: #### E VIT, LMLATE, B1WB #### [place] [address] [phone] #### BMP #### [place] [address] #### B3VIT #### [facility] [address] [place] [phone] #### VITB6 #### [facility] [address] [place] [address] [phone] Creatinine mass conc 0.76 mg/dL Normal 0.70-1.40 [facility] Comment on above: Performed By: #### E VIT, LMLATE, B1WB #### [facility] [address] [place] [phone] #### BMP #### [place] [phone] #### B3VIT #### [facility] [address] [place] [phone] #### VITB6 #### [facility] [address] [place] [address] [phone] eGFR- Amer. >60 Normal >[address] [facility] Comment on above: Performed By: #### E VIT, LMLATE, B1WB #### [place] [address] [place] [phone] #### BMP #### [place] [phone] #### B3VIT #### [facility] [address] [place] [phone] #### VITB6 #### [facility] [address] [place] [address] [phone] GFR/1.73 sq M predicted among non-blacks MDRD vol rate/area (S/P/Bld) mL/min/{1.73_m2} Normal >60 [facility] Comment on above: Performed By: #### E VIT, LMLATE, B1WB #### [place] [address] [place] [phone] #### BMP #### [place] [phone] #### B3VIT #### [facility] [address] [place] [phone] #### VITB6 #### [facility] [address] [place] [address] [phone] Glucose mass conc 79 mg/dL Normal 65-100 [facility] Comment on above: Performed By: #### E VIT, LMLATE, B1WB #### [facility] [address] [place] [address] #### BMP #### [place] [address] #### B3VIT #### [facility] [address] [place] [address] #### VITB6 #### [facility] [address] [place] [address] [phone] Potassium molar conc 3.9 mmol/L Normal 3.5-5.0 [facility] Comment on above: Performed By: #### E VIT, LMLATE, B1WB #### [facility] [address] [place] [phone] #### BMP #### [place] [address] #### B3VIT #### [facility] [address] [place] [address] #### VITB6 #### [facility] [address] [place] [address] [phone] Sodium molar conc 142 mmol/L Normal 132-148 [facility] Comment on above: Performed By: #### E VIT, LMLATE, B1WB #### [facility] [address] [place] [phone] #### BMP #### [place] [address] #### B3VIT #### [facility] [address] [place] [phone] #### VITB6 #### [facility] [address] [place] [address] [phone] Urea nitrogen mass conc 9 mg/dL Normal 8-25 [facility] Comment on above: Performed By: #### E VIT, LMLATE, B1WB #### [facility] [address] [place] [address] #### BMP #### [facility] [address] [place] [address] #### B3VIT #### [facility] Reference [address] [place] [address] #### VITB6 #### [facility] [address] [place] [address] [phone] CNOVon 09-29-2018 CNOV Office Visit (NEADFV ) JUDITH FRENCH ([id number]) 1970 F Date Time Provider Department 09/29/18 1:30 PM ISAIAH CHRISTIANSON During your visit today, we recorded the following information about you: Pulse Respiration Blood pressure Weight 68/minute 16/minute 134/72 66.7 kg Isaiah Christianson MD 09/29/2018 2:31 PM Signed GENERAL NEUROLOGY INITIAL CONSULT SERVICE DATE: 09/29/2018 SERVICE TIME: 1:07 PM Physician requesting consult: MERYL MCCRACKEN [address] [facility] [phone] PCP: Jose Yadav CNP Patient name Judith French, Age: [age] year old Sex: female. Our recommendations of care will be communicated by shared medical record. Chief Complain: parageusia HPI: Judith French is a 48 year old right handed female w PMH right mestoidectomy in 1999 who presented to neurology clinic with a chief complaint of alteration in taste/parageusia. She was on xanax and trazodone. She wane off on them on Jun 05 2018 that's when she started to have bad taste in her mouth. It involved the whole mouth. She also got sick with sinus infection. She had her teeth cleaned, cavity filled. She describes it as metal or soap in her mouth. It's on her tongue and she is white patches on her cheek on the left. She was given 2 weeks antibiotics but it didn't help. The parageusia is causing a lot of anxiety. No change in smell, speech or swallow. No numbness or pain in her arms or legs. No trouble walking, weakness or numbness in her arms or legs. REVIEW OF SYSTEMS: GENERAL: Normal sleep, appetite and activity, No fevers. HEENT: Negative for headaches, No problems with hearing or vision, no nose bleeds or other nasal problems NECK: Negative for stiffness, lumps or significant neck swelling RESPIRATORY: Negative for cough, wheezing or respiratory distress CARDIOVASCULAR: Negative for chest pain, syncope, lightheadness or heart racing GI: No nausea, vomiting, or diarrhea : No history of dysuria, frequency or incontinence MUSCULOSKELETAL: Negative for joint pain or swelling, back pain or muscle pain SKIN: Negative for lesions, rash, and itching Depression or other psychiatric disease: none NEURO: See HPI Current Outpatient Medications on File Prior to Visit: TRAZODONE HCL (TRAZODONE ORAL) Take 50 mg by mouth daily at bedtime. mometasone (ASMANEX HFA) 100 mcg/actuation HFAA Inhale as instructed. ALPRAZolam (XANAX) 0.25 mg tablet Take 0.25 mg by mouth three times daily as needed for Anxiety. No current facility-administered medications on file prior to visit. PAST MEDICAL HISTORY Diagnosis Date - Anxiety - Basal cell carcinoma - Bilateral breast cysts Dr. Milligan-SCREW DOWN - Depression Dr. Lopez - Insomnia Dr. Lopez - Menopause - Pneumothorax - Positive EYAL (antinuclear antibody) Seeing Dr. Mckenna-Rheum - Tobacco use PAST SURGICAL HISTORY Procedure Laterality Date - PAST SURGICAL HISTORY OF Right 2000 Reconstruction of bones in right ear-mastoidectomy Social History Socioeconomic History Marital status: Spouse name: Not on file Number of children: Not on file Years of education: Not on file Highest education level: Not on file Social Needs Financial resource strain: Not on file Food insecurity - worry: Not on file Food insecurity - inability: Not on file Transportation needs - medical: Not on file Transportation needs - non-medical: Not on file Occupational History Not on file Tobacco Use Smoking status: Current Every Day Smoker Packs/day: 0.50 Years: 30.00 Pack years: 15 Types: Cigarettes Smokeless tobacco: Never Used Substance and Sexual Activity Alcohol use: No Drug use: No Comment: A lot of coffee for a long time Sexual activity: Yes Other Topics Concerns: Not on file Social History Narrative Not on file FAMILY HISTORY Problem Relation Age of Onset - other (lupus) Mother d. age 58 - other (CHF) Mother - Kidney Disease Father - Skin Cancer Sister basal cell ALLERGIES No Known Allergies PHYSICAL EXAM: BP 134/72 Pulse 68 Resp 16 Wt 66.7 kg (147 lb) SpO2 97% BMI 23.02 kg/m? General Appearance: Well appearing, alert, in no acute distress, well-hydrated, well nourished. Skin: Skin color, texture, turgor normal, no suspicious rashes or lesions Head: Normocephalic, no masses, lesions, tenderness or abnormalities Ears: External ears normal, canals clear Nose/Sinuses: Nares normal, septum midline, mucosa normal, no drainage or sinus tenderness Oropharynx: Lips, mucosa, and tongue normal, teeth and gums normal, oropharynx normal Neck: Supple, no adenopathy; thyroid symmetric, normal size, no bruits Lhermitte's Phenomenon: Negative Lungs: lungs clear to auscultation. No wheezing, rhonchi, rales Heart: RRR without murmur, gallop, or rubs. No ectopy Carotid Auscultation: Without bruits Abdomen: Normal abdominal exam, Abdomen soft, non-tender. Bowel sounds normal. No masses, organomegaly Extremities: No deformities, edema, skin discoloration, clubbing or cyanosis. Good capillary refill. Musculoskeletal: No joint swelling, deformity, or tenderness Peripheral Pulses: Normal Neurological: ? Mental Status: Alert, with normal speech and language. Attention and concentration appeared normal. Oriented x 3. Cranial Nerves: CNII: Visual acuity normal, Visual samson full to confrontation, Pupils OD 2-3mm, OS 2-3mm, equal, round and reactive to light, No APD noted on exam CNIII, IV, : full extraoccular movements, without nystagmus CN V: Facial sensation intact bilaterally to fine touch and pinprick, masseter 5/5 CN VII: Facial muscles symmetric and strong, No noted facial droop CN VIII: Hears finger rub well bilaterally CN IX: Gag Reflex Not examined CN X: Palate elevates symmetrically CN XI: Full strength shoulder shrug bilaterally CN XII: Tongue protrusion full and midline ? Non-Dilated Fundiscopic Examination: Disc sharp bilaterally, no papilledema ? Motor Exam: Normal Tone - Normal Bulk - no muscle atrophy Muscle strength medical research pauma scale MUSCLES Upper Extremity RIGHT LEFT Deltoid 5 5 Biceps 5 5 Triceps 5 5 Wrist Extension 5 5 Wrist Flexion 5 5 Finger Flexion 5 5 Finger Extension 5 5 MUSCLES Lower Extremity RIGHT LEFT Hip Flexion 5 5 Hip Extension 5 5 BiFem (Knee Flex) 5 5 Quads (Knee Ext) 5 5 Gastroc (Plantflx) 5 5 TibAnt (Dorsiflx) 5 5 ? Reflexes Right Left Bicep 2/4 2/4 Tricep 2/ 2/4 BrRad 2/4 2/4 Knee 2/4 2/4 Ankle 2/4 2/4 Clonus 0beats 0beats Plantar Response Downward response Downward response ? Complex motor and coordination: No resting, postural or action tremor. No asterixis. Finger-to- nose-finger intact bilaterally Svzp-ao-gfby intact bilaterally. Rapid Alternating Movements: Normal bilaterally ? Sensory: Intact light touch/pin prick/ temperature/proprioce ption/vibration in upper and lower extremities bilaterally. Double simultaneous stimulation, graphesthesia and stereognosis intact. ? ? Gait: Normal base, stride, arm swing. 1 step to turn. Normal heel, toe and tandem gait. Rhomberg test negative, Pull Test negative. DATA: Diagnostic tests reviewed for today's visit, films/specimens were personally reviewed and interpreted by me: LABS/DATA: Lab Results Component Value Date PLT 201 08/10/2013 HB 13.8 08/10/2013 HCT 40.4 08/10/2013 ALB 4.4 08/10/2013 CA 9.6 08/10/2013 TBILI 0.3 08/10/2013 ALKPHOS 55 08/10/2013 AST 38 08/10/2013 GLUC 50 08/10/2013 BUN 14 08/10/2013 NA 140 08/10/2013 K 3.5 08/10/2013 CHLOR 99 08/10/2013 CO2 23 08/10/2013 ANION 18 08/10/2013 ALT 48 08/10/2013 CRP (mg/dL) Date Value 08/10/2013 0.3 No results found for: USCRP No results found for: CHOL No results found for: LDL No results found for: HDL No results found for: TG HGB A1C (no units) Date Value 06/16/2016 5.4 IMAGING: none ASSESSMENT: Judith French is a 48 year old right handed female w PMH right mestoidectomy in 1999 who presented to neurology clinic with a chief complaint of alteration in taste/parageusia. --Parageusia: will do MRI brain for CN VII, IX, XI. Will also check blood for metabolic issues. However, the most common cause is a questionable dental and oral problems. Alternatively, her smoking, and anxiety might have contributed to this sensation. Since it is causing a lot of anxiety, given her nortriptyline to see whether it works for her. --H right mestoidectomy PLAN/RECS: --MRI cranial nerve study --blood test today: Vit B1, B6, B12, E, zinc, Lyme Abs --Nortriptyline 25mg bedtime --follow up in a month All questions were answered at my best knowledge. Patient and family verbalized understanding. Total of 60 minutes were spent on the encounter, counseling, coordination of care , >50% time were for direct patient interview and counseling. SIGNATURE: Isaiah Christianson MD PATIENT NAME: Judith French DATE: September 29, 2018 TIME: 1:07 PM PAGER/CONTACT #: [phone] Isaiah Christianson MD 09/29/2018 1:50 PM Signed --MRI brain --blood test today --Nortriptyline 25mg bedtime --follow up in a month Referring Provider: MERYL MCCRACKEN [[id number]] Allergies As of Date: 09/29/2018 (No Known Allergies) Date Reviewed: 09/29/2018 Reviewed by: Kerline Smith Ma - Fully Assessed Reason for Visit: New Patient Evaluation [154] Primary Visit Diagnosis:Parageusia [R43.2] Other Visit Diagnoses:Other disturbances of skin sensation [R20.8] Anxiety [F41.9] Bilateral breast cysts [N60.01, N60.02] Tobacco use [Z72.0] Insomnia, unspecified type [G47.00] Order(s):VITAMIN B1/THIAMINE, WHOLE BLD [RHR0ZBT] Order #: [id number] FUTURE VITAMIN B3/NIACIN, PLASMA [OPN8OSP] Order #: [id number] FUTURE VITAMIN B12 BLOOD [SQB12] Order #: [id number] VITAMIN E/TOCOPHEROL [SQVITE] Order #: [id number] FUTURE VITAMIN B6/PYRIDOXIN [SQVITB6] Order #: [id number] FUTURE LYME AB LATE >30 DAYS SYMPTOMS [SQLMLATE] Order #: [id number] FUTURE nortriptyline (PAMELOR) 25 mg capsuleTake 1 capsule by mouth daily at bedtime.Disp: 30 capsuleRfl: 3 MRI BRAIN WO/W IVCON [[id number]] Order #: [id number] FUTURE iv contrast (will be provided with radiology test)MRI Brain Inject, intravenously, once for 1 dose.No IV access, insert saline lock prior to beginning of sedation, infusion, injection of imaging exam.Discontinue saline lock post exam. If Pt. has a central line or IVAD, may access for administration according to line specific nursing protocol.Once exam is complete flush line and de-access according to line specific nursing protocol in the MR contrast administration guidelines linkDisp: 1 EachRfl: 0 BASIC METABOLIC PNL [SQBMP] Order #: [id number] FUTURE ZINC BLD [SQZINC] Order #: [id number] FUTURE Prescriptions as of 09/29/2018 Sig: NORTRIPTYLINE 25 MG CAPSULE Take 1 capsule by mouth daily* IV CONTRAST (RADIOLOGY PROCED* MRI Brain Inject, intravenous* MOMETASONE 100 MCG/ACTUATION * Inhale as instructed. ALPRAZOLAM 0.25 MG TABLET Take 0.25 mg by mouth three t* Problem List As Of Date 09/29/2018 Noted Resolved 1.5.1 Chronic migraine [346.71] [G43.719] INVALID FOR* 8.2 Medication overuse headache (MOH) [339.3] [*INVALID FOR* Other syndromes affecting cervical region [M53.*INVALID FOR* Tobacco abuse disorder [Z72.0] INVALID FOR* Positive EYAL (antinuclear antibody) [R76.8] More... Anxiety [F41.9] Bilateral breast cysts [N60.01, N60.02] More... Insomnia [G47.00] More... Menopause [Z78.0] Tobacco use [Z72.0] Parageusia [R43.2] INVALID FOR* Other instructions from your clinician: --MRI brain --blood test today --Nortriptyline 25mg bedtime --follow up in a month Prescriptions ordered this encounter Disp Refills Start End NORTRIPTYLINE 25 MG CAPSULE 30 c* 3 09/29/2018 Route: ORAL Sig: Take 1 capsule by mouth daily at bedtime. IV CONTRAST (RADIOLOGY PROCEDURE) 1 Ea* 0 09/29/2018 09/30/2018 Class: In Office Sig: MRI Brain Inject, intravenously, once for 1 dose.No IV access, insert saline lock prior to beginning of sedation, infusion, injection of imaging exam.Discontinue saline lock post exam. If Pt. has a central line or IVAD, may access for administration according to line specific nursing protocol.Once exam is complete flush line and de-access according to line specific nursing protocol in the MR contrast administration guidelines link Medications Discontinued During This Encounter TRAZODONE HCL (TRAZODONE ORAL) 09/29/2018 Class: Historical Med Route: ORAL Sig: Take 50 mg by mouth daily at bedtime. Disc: Course of therapy completed Disposition: Return in about 1 month (around 10/30/2018). Follow-up and Disposition History Recorded Encounter Status:Closed by ISAIAH CHRISTIANSON MD on 09/29/18 Normal [facility] HISTORY PHYSICALon HISTORY PHYSICAL HNO ID: [id number] Author: Isaiah Christianson Service: ? Author Type: Physician Type: HANDP Filed: 09/29/2018 2:31 PM Note Text: GENERAL NEUROLOGY INITIAL CONSULT SERVICE DATE: 09/29/2018 SERVICE TIME: 1:07 PM Physician requesting consult: MERYL MCCRACKEN [address] [facility] [phone] PCP: Jose Yadav CNP Patient name Judith French, Age: [age] year old Sex: female. Our recommendations of care will be communicated by shared medical record. Chief Complain: parageusia HPI: Judith French is a 48 year old right handed female w PMH right mestoidectomy in 1999 who presented to neurology clinic with a chief complaint of alteration in taste/parageusia. She was on xanax and trazodone. She wane off on them on Jun 05 2018 that's when she started to have bad taste in her mouth. It involved the whole mouth. She also got sick with sinus infection. She had her teeth cleaned, cavity filled. She describes it as metal or soap in her mouth. It's on her tongue and she is white patches on her cheek on the left. She was given 2 weeks antibiotics but it didn't help. The parageusia is causing a lot of anxiety. No change in smell, speech or swallow. No numbness or pain in her arms or legs. No trouble walking, weakness or numbness in her arms or legs. REVIEW OF SYSTEMS: GENERAL: Normal sleep, appetite and activity, No fevers. HEENT: Negative for headaches, No problems with hearing or vision, no nose bleeds or other nasal problems NECK: Negative for stiffness, lumps or significant neck swelling RESPIRATORY: Negative for cough, wheezing or respiratory distress CARDIOVASCULAR: Negative for chest pain, syncope, lightheadness or heart racing GI: No nausea, vomiting, or diarrhea : No history of dysuria, frequency or incontinence MUSCULOSKELETAL: Negative for joint pain or swelling, back pain or muscle pain SKIN: Negative for lesions, rash, and itching Depression or other psychiatric disease: none NEURO: See HPI Current Outpatient Medications on File Prior to Visit: TRAZODONE HCL (TRAZODONE ORAL) Take 50 mg by mouth daily at bedtime. mometasone (ASMANEX HFA) 100 mcg/actuation HFAA Inhale as instructed. ALPRAZolam (XANAX) 0.25 mg tablet Take 0.25 mg by mouth three times daily as needed for Anxiety. No current facility-administered medications on file prior to visit. PAST MEDICAL HISTORY Diagnosis Date - Anxiety - Basal cell carcinoma - Bilateral breast cysts Dr. Milligan-SCREW DOWN - Depression Dr. Lopez - Insomnia Dr. Lopez - Menopause - Pneumothorax - Positive EYAL (antinuclear antibody) Seeing Dr. Mckenna-Rheum - Tobacco use PAST SURGICAL HISTORY Procedure Laterality Date - PAST SURGICAL HISTORY OF Right 2000 Reconstruction of bones in right ear-mastoidectomy Social History Socioeconomic History Marital status: Spouse name: Not on file Number of children: Not on file Years of education: Not on file Highest education level: Not on file Social Needs Financial resource strain: Not on file Food insecurity - worry: Not on file Food insecurity - inability: Not on file Transportation needs - medical: Not on file Transportation needs - non-medical: Not on file Occupational History Not on file Tobacco Use Smoking status: Current Every Day Smoker Packs/day: 0.50 Years: 30.00 Pack years: 15 Types: Cigarettes Smokeless tobacco: Never Used Substance and Sexual Activity Alcohol use: No Drug use: No Comment: A lot of coffee for a long time Sexual activity: Yes Other Topics Concerns: Not on file Social History Narrative Not on file FAMILY HISTORY Problem Relation Age of Onset - other (lupus) Mother d. age 58 - other (CHF) Mother - Kidney Disease Father - Skin Cancer Sister basal cell ALLERGIES No Known Allergies PHYSICAL EXAM: BP 134/72 Pulse 68 Resp 16 Wt 66.7 kg (147 lb) SpO2 97% BMI 23.02 kg/m? General Appearance: Well appearing, alert, in no acute distress, well-hydrated, well nourished. Skin: Skin color, texture, turgor normal, no suspicious rashes or lesions Head: Normocephalic, no masses, lesions, tenderness or abnormalities Ears: External ears normal, canals clear Nose/Sinuses: Nares normal, septum midline, mucosa normal, no drainage or sinus tenderness Oropharynx: Lips, mucosa, and tongue normal, teeth and gums normal, oropharynx normal Neck: Supple, no adenopathy; thyroid symmetric, normal size, no bruits Lhermitte's Phenomenon: Negative Lungs: lungs clear to auscultation. No wheezing, rhonchi, rales Heart: RRR without murmur, gallop, or rubs. No ectopy Carotid Auscultation: Without bruits Abdomen: Normal abdominal exam, Abdomen soft, non-tender. Bowel sounds normal. No masses, organomegaly Extremities: No deformities, edema, skin discoloration, clubbing or cyanosis. Good capillary refill. Musculoskeletal: No joint swelling, deformity, or tenderness Peripheral Pulses: Normal Neurological: ? Mental Status: Alert, with normal speech and language. Attention and concentration appeared normal. Oriented x 3. Cranial Nerves: CNII: Visual acuity normal, Visual samson full to confrontation, Pupils OD 2-3mm, OS 2-3mm, equal, round and reactive to light, No APD noted on exam CNIII, IV, : full extraoccular movements, without nystagmus CN V: Facial sensation intact bilaterally to fine touch and pinprick, masseter 5/5 CN VII: Facial muscles symmetric and strong, No noted facial droop CN VIII: Hears finger rub well bilaterally CN IX: Gag Reflex Not examined CN X: Palate elevates symmetrically CN XI: Full strength shoulder shrug bilaterally CN XII: Tongue protrusion full and midline ? Non-Dilated Fundiscopic Examination: Disc sharp bilaterally, no papilledema ? Motor Exam: Normal Tone - Normal Bulk - no muscle atrophy Muscle strength medical research pauma scale MUSCLES Upper Extremity RIGHT LEFT Deltoid 5 5 Biceps 5 5 Triceps 5 5 Wrist Extension 5 5 Wrist Flexion 5 5 Finger Flexion 5 5 Finger Extension 5 5 MUSCLES Lower Extremity RIGHT LEFT Hip Flexion 5 5 Hip Extension 5 5 BiFem (Knee Flex) 5 5 Quads (Knee Ext) 5 5 Gastroc (Plantflx) 5 5 TibAnt (Dorsiflx) 5 5 ? Reflexes Right Left Bicep 2/4 2/4 Tricep 2/4 2/4 BrRad 2/4 2/4 Knee 2/4 2/4 Ankle 2/4 2/4 Clonus 0beats 0beats Plantar Response Downward response Downward response ? Complex motor and coordination: No resting, postural or action tremor. No asterixis. Finger-to- nose-finger intact bilaterally Cixl-he-chak intact bilaterally. Rapid Alternating Movements: Normal bilaterally ? Sensory: Intact light touch/pin prick/ temperature/proprioce ption/vibration in upper and lower extremities bilaterally. Double simultaneous stimulation, graphesthesia and stereognosis intact. ? ? Gait: Normal base, stride, arm swing. 1 step to turn. Normal heel, toe and tandem gait. Rhomberg test negative, Pull Test negative. DATA: Diagnostic tests reviewed for today's visit, films/specimens were personally reviewed and interpreted by me: LABS/DATA: Lab Results Component Value Date PLT 201 08/10/2013 HB 13.8 08/10/2013 HCT 40.4 08/10/2013 ALB 4.4 08/10/2013 CA 9.6 08/10/2013 TBILI 0.3 08/10/2013 ALKPHOS 55 08/10/2013 AST 38 08/10/2013 GLUC 50 08/10/2013 BUN 14 08/10/2013 NA 140 08/10/2013 K 3.5 08/10/2013 CHLOR 99 08/10/2013 CO2 23 08/10/2013 ANION 18 08/10/2013 ALT 48 08/10/2013 CRP (mg/dL) Date Value 08/10/2013 0.3 No results found for: USCRP No results found for: CHOL No results found for: LDL No results found for: HDL No results found for: TG HGB A1C (no units) Date Value 06/16/2016 5.4 IMAGING: none ASSESSMENT: Judith French is a 48 year old right handed female w PMH right mestoidectomy in 1999 who presented to neurology clinic with a chief complaint of alteration in taste/parageusia. --Parageusia: will do MRI brain for CN VII, IX, XI. Will also check blood for metabolic issues. However, the most common cause is a questionable dental and oral problems. Alternatively, her smoking, and anxiety might have contributed to this sensation. Since it is causing a lot of anxiety, given her nortriptyline to see whether it works for her. --H right mestoidectomy PLAN/RECS: --MRI cranial nerve study --blood test today: Vit B1, B6, B12, E, zinc, Lyme Abs --Nortriptyline 25mg bedtime --follow up in a month All questions were answered at my best knowledge. Patient and family verbalized understanding. Total of 60 minutes were spent on the encounter, counseling, coordination of care , >50% time were for direct patient interview and counseling. SIGNATURE: Isaiah Christianson MD PATIENT NAME: Judith French DATE: September 29, 2018 TIME: 1:07 PM PAGER/CONTACT #: [phone] Normal [facility] LYME LATE (>30 DAYS)on 09-29 Lyme IgG/IgM AB Negative Normal Negative [facility] Comment on above: Result Comment: Abse nce of detectable Borrelia burgdorferi antibodies. A negative result does not exclude the possibility of Borrelia burgdorferi infection. If early Lyme disease is suspected, a second sample should be collected and tested two to four weeks later. Performed By: #### E VIT, LMLATE, B1WB #### [facility] [address] [place], [place] [address] #### BMP #### [place] [phone] #### B3VIT #### [facility] [phone] #### VITB6 #### [address] [address] [phone] Niacinon 09-29-2018 Vitamin B3 Plasma 2.54 ug/mL Normal [facility] Comment on above: Result Comment: (NOT E) ADDITIONAL INFORMATION Adult Reference Range >10 years Normal 0.50 - 8.45 Low < 0.50 High > 8.45 Pediatric Reference Range <10 years Normal 0.50 - 8.91 Low < 0.50 High > 8.91 The performance characteristics of the listed assay was validated by [facility]. The [place] FDA has not approved or cleared this test. The results of this assay can be used for clinical diagnosis without FDA approval. [facility]. is a CLIA certified, CAP accredited laboratory for performing high complexity assays such as this one. Test Performed by: [facility]. [facility] [place] [address] Performed By: #### E VIT, LMLATE, B1WB #### [facility] [phone] #### BMP #### [place] [phone] #### B3VIT #### [facility] [phone] #### VITB6 #### [place] [address] [phone] Vitamin B1, Whole Blon 09-29 Vitamin B1 (TDP), WB 168.4 nmol/L Normal 84.0-213.0 [facility] Comment on above: Result Comment: This assay measures the concentration of thiamine diphosphate (TDP), the primary active form of vitamin B1. Approximately 90 percent of vitamin B1 present in whole blood is TDP. Thiamine and thiamine monophosphate, which comprise the remaining 10 percent, are not measured. This test was developed and its performance characteristics determined by [facility]'s [facility] [place] ([facility]). It has not been cleared or approved by the FDA. [facility] is regulated under CLIA as qualified to perform high complexity testing. This test is used for clinical purposes. It should not be regarded as investigational or for research. Performed By: #### E VIT, LMLATE, B1WB #### [facility] [address] [place] [phone] #### BMP #### [place] [phone] #### B3VIT #### [facility] [address] [place] [phone] #### VITB6 #### [facility] [address] [place] [address] [phone] Vitamin B12on 09-29-2018 Cobalamin (Vitamin B12) mass conc 496 pg/mL Normal 232-1245 [facility] Comment on above: Performed By: #### B 12 #### [place] [phone] Vitamin B6 Plasmaon 09-30-19 19 Vitamin B6 Plasma 17.4 nmol/L Low 20.0-125.[address] [facility] Comment on above: Result Comment: (NOT E) INTERPRETIVE INFORMATION: Vitamin B6 (Pyridoxal 5-Phosphate) Pyridoxal 5'-phosphate measured in a specimen collected following an 8-hour or overnight fast accurately indicates vitamin B6 nutritional status. Non-fasting specimen concentration reflects recent vitamin intake. Test developed and characteristics determined by [facility]. See Compliance Statement B: [facility] Performed by [facility], [address] [place] [address] [phone] [email or web address], Terrence Bowser MD, Lab. Director Performed By: #### E VIT, LMLATE, B1WB #### [facility] [address] [place] [phone] #### BMP #### [place] [address] #### B3VIT #### [facility] [address] [place] [address] #### VITB6 #### [address] [address] [phone] Vitamin Tom 09-29-2018 Vitamin E-alpha 10.3 mg/L Normal 6.0-23.0 [facility] Comment on above: Performed By: #### E VIT, LMLATE, B1WB #### [address] [place] [phone] #### BMP #### [place] [phone] #### B3VIT #### [facility] [place] [phone] #### VITB6 #### [address] [address] [phone] Vitamin E-gamma 1.0 mg/L Normal 0.3-3.2 [facility] Comment on above: Result Comment: This test was developed and its performance characteristics determined by [facility]'s [facility] [place] ([facility]). It has not been cleared or approved by the FDA. [facility] is regulated under CLIA as qualified to perform high complexity testing. This test is used for clinical purposes. It should not be regarded as investigational or for research. Performed By: #### E VIT, LMLATE, B1WB #### [place] [id number] [place] [phone] #### BMP #### [place] [phone] #### B3VIT #### [facility] [place] [phone] #### VITB6 #### [facility] [address] [place] [address] [phone] Estradiolon 08-18-2018 Estradiol Lvl 47.5 pg/mL Normal [facility] Comment on above: Result Comment: Adul t Female: Follicular phase 12.5 - 166.0 Ovulation phase 85.8 - 498.0 Luteal phase 43.8 - 211.0 Postmenopausal <6.0 - 54.7 1st trimester 215.0 - >4300.0 Girls (1-10 years) 6.0 - 27.0 [place] ECLIA methodology Performed At: [facility] [id number] Sia Welch PhD Ph:[phone] Performed By: #### 2 [id number] #### VIVIANA Bauman [address] [place], [place] [id number] FSHon 08-18-2018 FSH 64.8 mIU/mL Normal [facility] Comment on above: Result Comment: Adul t Female: Follicular phase 3.5 - 12.5 Ovulation phase 4.7 - 21.5 Luteal phase 1.7 - 7.7 Postmenopausal 25.8 - 134.8 Performed At: [address] [id number] Sia Welch PhD Ph:[phone] Performed By: #### 2 [id number] #### VIVIANA Bauman [facility] [place] [address] Testost Totalon 08-18-2018 Testoster Tot 183 ng/dL High 3-41 [facility] Comment on above: Result Comment: Perf ormed At: [address] [id number] Sia Welch PhD Ph:[phone] Performed By: #### 2 [id number] #### VIVIANA MendozaHemo [facility] [place] [id number] CMPon 08-17-2018 Albumin mass conc 4.5 g/dL Normal 3.4-5.0 [facility] Comment on above: Performed By: #### 2 [id number] #### VIVIANA MendozaHemgrayson [address] [place] [address] Albumin/Globulin mass ratio 1.4 {ratio} Normal 1.1-1.9 [facility] Comment on above: Performed By: #### 2 194592 #### VIVIANA Perezo [address] [place] [address] Alk Phos 86 Int._Unit/L Normal 33-110 [facility] Comment on above: Performed By: #### 2 [id number] #### VIVIANA MendozaHemo [address] [place] [address] ALT enzyme act/vol 12 Int._Unit/L Normal 7-45 [facility] Comment on above: Performed By: #### 2 [id number] #### VIVIANA MendozaHemo [address] [place] [address] Anion gap molar conc 12 mmol/L Normal 10-20 [facility] Comment on above: Performed By: #### 2 [id number] #### VIVIANA MendozaHemo [address] [place] [address] AST enzyme act/vol 13 Int._Unit/L Normal 9-39 [facility] Comment on above: Performed By: #### 2 [id number] #### VIVIANA MendozaHemo [address] [place] [address] Bili Total 0.42 mg/dL Normal 0.00-1.20 [facility] Comment on above: Performed By: #### 2 [id number] #### VIVIANA MendozaHemo [address] [place] [address] Calcium mass conc 9.3 mg/dL Normal 8.6-10.3 [facility] Comment on above: Performed By: #### 2 [id number] #### VIVIANA MendozaHemo [address] [place] [address] Chloride molar conc 106 mmol/L Normal 98-107 [facility] Comment on above: Performed By: #### 2 244483 #### VIVIANA MendozaHemo [address] [place] [address] CO2 molar conc 24.0 mmol/L Normal 21.0-32.0 [facility] Comment on above: Performed By: #### 2 294733 #### VIVIANALuis MendozaHemo [address] [place] [address] Creatinine mass conc 0.7 mg/dL Normal 0.5-1.1 [facility] Comment on above: Performed By: #### 2 [id number] #### VIVIANA MendozaHemo [address] [place] [address] Globulin mass conc (S) 3.0 g/dL Normal 2.0-4.0 [facility] Comment on above: Performed By: #### 2 107993 #### VIVIANA MendozaHemo [address] [place] [address] Glucose mass conc 88 mg/dL Normal 70-99 [facility] Comment on above: Performed By: #### 2 639714 #### VIVIANA MendozaHemo [address] [place] [address] Potassium molar conc 3.4 mmol/L Low 3.5-5.3 [facility] Comment on above: Performed By: #### 2 [id number] #### VIVIANA MendozaHemo [address] [place] [address] Protein mass conc 7.7 g/dL Normal 6.4-8.2 [facility] Comment on above: Performed By: #### 2 [id number] #### VIVIANA MendozaHemo [address] [place] [address] Sodium molar conc 138 mmol/L Normal 136-145 [facility] Comment on above: Performed By: #### 2 [id number] #### VIVIANA MendozaHemo [address] [place] [address] Urea nitrogen mass conc 14 mg/dL Normal 6-23 [facility] Comment on above: Performed By: #### 2 [id number] #### VIVIANA MendozaHemo [address] [place] [address] Urea nitrogen/Creatinine mass ratio 20.0 ratio Normal 5.4-30.0 [facility] Comment on above: Performed By: #### 2 [id number] #### VIVIANA MendozaHemo [address] [place] [address] Vit B12on 08-17-2018 Cobalamin (Vitamin B12) mass conc 345 pg/mL Normal 180-914 [facility] Comment on above: Performed By: #### 2 [id number] #### VIVIANA MendozaHemo [address] [place] [address] Vitamin D 25 Hydroxyon 08-17 Vitamin D 25 Hydroxy 58.0 ng/mL Normal 30.0-100.0 [facility] Comment on above: Performed By: #### 2 821866 #### VIVIANA MendozaHemo [address] [place] [address] eGFRon 08-17-2018 GFR/1.73 sq M predicted among non-blacks MDRD vol rate/area (S/P/Bld) mL/min/{1.73_m2} Normal [facility] Comment on above: Order Comment: Order added by Discern Expert. Performed By: #### 2 738064 #### VIVIANA MendozaHemo [facility] [place] [address] Lab Miscellaneouson 07-01-19 19 Status See Ref Lab Report Normal [facility] Comment on above: Performed By: #### 2 [id number] #### VIVIANA MendozaHemo [facility] [place] [address] Estradiolon 06-30-2018 Estradiol Lvl <5.0 [facility] Comment on above: Result Comment: Adul t Female: Follicular phase 12.5 - 166.0 Ovulation phase 85.8 - 498.0 Luteal phase 43.8 - 211.0 Postmenopausal <6.0 - 54.7 1st trimester 215.0 - >4300.0 Girls (1-10 years) 6.0 - 27.0 [place] ECLIA methodology Performed At: [facility] [address] [id number] Sia Welch PhD Ph:[phone] Performed By: #### 2 [id number] #### VIVIANA MendozaHemo [address] [place] [address] FSHon 06-30-2018 FSH 94.1 mIU/mL [facility] Comment on above: Result Comment: Adul t Female: Follicular phase 3.5 - 12.5 Ovulation phase 4.7 - 21.5 Luteal phase 1.7 - 7.7 Postmenopausal 25.8 - 134.8 Performed At: [facility] [place] [address] [place], [place] [id number] Sia Welch PhD Ph:[phone] Performed By: #### 2 798164 #### VIVIANA RemHemo [address] [place] [address] Testost Totalon 06-30-2018 Testoster Tot 35 ng/dL Normal 3-41 [facility] Comment on above: Result Comment: Perf ormed At: [address] [id number] Sia Welch PhD Ph:[phone] Performed By: #### 2 759515 #### VIVIANA RemHemo [address] [place] [address] Thyroid Perox.tpo Abon 06-30 TPO Ab 7 International_Unit/mL Normal 0-34 [facility] Comment on above: Result Comment: Perf ormed At: [facility] [id number] Sia Welch PhD Ph:[phone] Performed By: #### 2 709388 #### VIVIANA RemHemo [address] [place] [address] Auto Diffon 06-29-2018 Basophils #/vol (Bld) 0.1 E3/mcL Normal 0.0-0.2 [facility] Comment on above: Order Comment: Order Added by Discern Expert. Performed By: #### 2 030353 #### VIVIANA RemHemo [address] [place] [address] Basophils/100 WBC (Bld) 0.8 % Normal 0.0-2.0 [facility] Comment on above: Order Comment: Order Added by Discern Expert. Performed By: #### 2 131475 #### VIVIANA RemHemo [address] [place] [address] Eos Absolute 0.1 E3/mcL Normal 0.0-0.7 [facility] Comment on above: Order Comment: Order Added by Discern Expert. Performed By: #### 2 322680 #### VIVIANA RemHemo [address] [place] [address] Eosinophils/100 WBC (Bld) 0.8 % Normal 0.0-11.0 [facility] Comment on above: Order Comment: Order Added by Discern Expert. Performed By: #### 2 552476 #### VIVIANA RemHemo [address] [place] [address] Lymphocytes #/vol (Bld) 1.9 E3/mcL Normal 1.2-3.4 [facility] Comment on above: Order Comment: Order Added by Discern Expert. Performed By: #### 2 091288 #### VIVIANA MendozaHemo [address] [place] [address] Lymphocytes/100 WBC (Bld) 22.5 % Normal 20.0-55.0 [facility] Comment on above: Order Comment: Order Added by Discern Expert. Performed By: #### 2 935939 #### VIVIANA RemHemo [address] [place] [address] Vigo Absolute 0.6 E3/mcL Normal 0.0-0.7 [facility] Comment on above: Order Comment: Order Added by Discern Expert. Performed By: #### 2 097626 #### VIVIANA RemHemo [address] [place] [address] Monocytes/100 WBC (Bld) 6.9 % Normal 0.0-10.0 [facility] Comment on above: Order Comment: Order Added by Discern Expert. Performed By: #### 2 111614 #### VIVIANA MendozaHemo [address] [place], [place] [address] Neutro Absolute 5.9 E3/mcL Normal 1.4-6.5 [facility] Comment on above: Order Comment: Order Added by Discern Expert. Performed By: #### 2 451371 #### VIVIANA RemHemo [address] [place], [place] [address] Neutro Auto 69.0 % Normal 37.0-75.0 [facility] Comment on above: Order Comment: Order Added by Discern Expert. Performed By: #### 2 385989 #### VIVIANA RemHemo [address] [place] [address] CBC w/ Auto Diffon 9 Erythrocyte distribution width Ratio (RBC) 13.6 % Normal 11.5-14.5 [facility] Comment on above: Performed By: #### 2 658364 #### VIVIANA RemHemo [address] [place] [address] Hematocrit Volume Fraction (Bld) 44.9 % Normal 36.0-48.0 [facility] Comment on above: Performed By: #### 2 143303 #### VIVIANA MendozaHemo [address] [place] [address] Hemoglobin mass conc (Bld) 15.2 g/dL Normal 12.0-16.0 [facility] Comment on above: Performed By: #### 2 588625 #### VIVIANA MendozaHemo [address] [place] [address] MCH Entitic mass (RBC) 32.3 pg High 27.0-31.0 [facility] Comment on above: Performed By: #### 2 038201 #### VIVIANA MendozaHemo [facility] [place] [address] MCHC mass conc (RBC) 33.8 g/dL Normal 33.0-37.0 [facility] Comment on above: Performed By: #### 2 410635 #### VIVIANA MendozaHemo [address] [place], [place] [address] MCV Entitic volume (RBC) 95.5 fL Normal 78.0-100.0 [facility] Comment on above: Performed By: #### 2 823811 #### VIVIANA MendozaHemo [facility] [place] [address] Platelet mean volume Entitic volume (Bld) 8.6 fL Normal 7.4-11.0 [facility] Comment on above: Performed By: #### 2 820303 #### VIVIANA MendozaHemo [address] [place] [address] Platelets #/vol (Bld) 226 E3/mcL Normal 130-400 [facility] Comment on above: Performed By: #### 2 508754 #### VIVIANA RemHemo [address] [place] [address] RBC #/vol (Bld) 4.71 E6/mcL Normal 3.90-5.40 [facility] Comment on above: Performed By: #### 2 464313 #### VIVIANA RemHemo [address] [place] [address] WBC #/vol (Bld) 8.5 E3/mcL Normal 3.6-11.0 [facility] Comment on above: Performed By: #### 2 558924 #### VIVIANA MendozaHemo [address] [place] [address] CMPon 06-29-2018 Albumin mass conc 4.8 g/dL Normal 3.4-5.0 [facility] Comment on above: Performed By: #### 2 882423 #### VIVIANA Perezo [address] [place] [address] Albumin/Globulin mass ratio 1.5 {ratio} Normal 1.1-1.9 [facility] Comment on above: Performed By: #### 2 069838 #### VIVIANA MendozaHemo [address] [place] [address] Alk Phos 76 Int._Unit/L Normal 33-110 [facility] Comment on above: Performed By: #### 2 675125 #### VIVIANA MendozaHemo [address] [place] [address] ALT enzyme act/vol 47 Int._Unit/L High 7-45 [facility] Comment on above: Performed By: #### 2 167081 #### VIVIANA MendozaHemo [address] [place] [address] Anion gap molar conc 12 mmol/L Normal 10-20 [facility] Comment on above: Performed By: #### 2 995070 #### VIVIANA MendozaHemo [address] [place] [address] AST enzyme act/vol 27 Int._Unit/L Normal 9-39 [facility] Comment on above: Performed By: #### 2 613541 #### VIVIANA MendozaHemo [address] [place] [address] Bili Total 0.54 mg/dL Normal 0.00-1.20 [facility] Comment on above: Performed By: #### 2 634260 #### VIVIANA MendozaHemo [address] [place] [address] Calcium mass conc 9.8 mg/dL Normal 8.6-10.3 [facility] Comment on above: Performed By: #### 2 394861 #### VIVIANALuis MendozaHemo [address] [place] [address] Chloride molar conc 104 mmol/L Normal 98-107 [facility] Comment on above: Performed By: #### 2 897663 #### VIVIANA MendozaHemo [address] [place] [address] CO2 molar conc 26.0 mmol/L Normal 21.0-32.0 [facility] Comment on above: Performed By: #### 2 501226 #### VIVIANA RemHemo [address] [place] [address] Creatinine mass conc 0.8 mg/dL Normal 0.5-1.1 [facility] Comment on above: Performed By: #### 2 613437 #### VIVIANA RemHemo [address] [place] [address] Globulin mass conc (S) 3.0 g/dL Normal 2.0-4.0 [facility] Comment on above: Performed By: #### 2 839883 #### VIVIANA RemHemo [address] [place] [address] Glucose mass conc 99 mg/dL Normal 70-99 [facility] Comment on above: Performed By: #### 2 170287 #### VIVIANA RemHemo [address] [place] [address] Potassium molar conc 3.5 mmol/L Normal 3.5-5.3 [facility] Comment on above: Performed By: #### 2 774305 #### VIVIANA RemHemo [address] [place] [address] Protein mass conc 8.0 g/dL Normal 6.4-8.2 [facility] Comment on above: Performed By: #### 2 039100 #### VIVIANA RemHemo [address] [place] [address] Sodium molar conc 139 mmol/L Normal 136-145 [facility] Comment on above: Performed By: #### 2 223693 #### VIVIANA RemHemo [address] [place] [address] Urea nitrogen mass conc 10 mg/dL Normal 6-23 [facility] Comment on above: Performed By: #### 2 403171 #### VIVIANA RemHemo [address] [place] [address] Urea nitrogen/Creatinine mass ratio 12.5 ratio Normal 5.4-30.0 [facility] Comment on above: Performed By: #### 2 100197 #### VIVIANA Perezo [address] [place] [address] Free T3on 06-29-2018 T3 free mass conc 3.9 pg/mL Normal 2.5-3.9 [facility] Comment on above: Performed By: #### 2 345248 #### VIVIANA Perezo [facility] [place] [phone] Free T4on 06-29-2018 T4 free mass conc 0.92 ng/dL Normal 0.58-1.64 [facility] Comment on above: Performed By: #### 2 948321 #### VIVIANA Bauman [facility] [place] [address] Lab Miscellaneouson 06-29-19 19 Test Name cystatin c Normal [facility] Comment on above: Performed By: #### 2 396830 #### VIVIANA Perezo [facility] [place] [address] TSHon 06-29-2018 Thyrotropin Qn 1.65 mcIU/mL Normal 0.30-5.60 [facility] Comment on above: Performed By: #### 2 800860 #### VIVIANA Perezo [facility] [place] [address] Vit B12on 06-29-2018 Cobalamin (Vitamin B12) mass conc 308 pg/mL Normal 180-914 [facility] Comment on above: Performed By: #### 2 314975 #### VIVIANA Perezo [facility] [place] [address] Vitamin D 25 Hydroxyon 06-29 Vitamin D 25 Hydroxy 28.0 ng/mL Low 30.0-100.0 [facility] Comment on above: Performed By: #### 2 283009 #### VIVIANA Perezo [facility] [place] [address] eGFRon 06-29-2018 GFR/1.73 sq M predicted among non-blacks MDRD vol rate/area (S/P/Bld) mL/min/{1.73_m2} Normal [facility] Comment on above: Order Comment: Order added by Charlie Expert. Performed By: #### 2 812063 #### VIVIANA RemHemo [address] [place] [address] Auto Diffon 05-27-2018 Basophils #/vol (Bld) 0.1 E3/mcL Normal 0.0-0.2 [facility] Comment on above: Order Comment: Order Added by Discern Expert. Performed By: #### 2 087054 #### VIVIANA RemHemo [address] [place] [address] Basophils/100 WBC (Bld) 0.7 % Normal 0.0-2.0 [facility] Comment on above: Order Comment: Order Added by Charlie Expert. Performed By: #### 2 214262 #### VIVIANA RemHemo [address] [place] [address] Eos Absolute 0.0 E3/mcL Normal 0.0-0.7 [facility] Comment on above: Order Comment: Order Added by Charlie Expert. Performed By: #### 2 082604 #### VIVIANA RemHemo [address] [place] [address] Eosinophils/100 WBC (Bld) 0.4 % Normal 0.0-11.0 [facility] Comment on above: Order Comment: Order Added by Charlie Expert. Performed By: #### 2 414237 #### VIVIANA RemHemo [address] [place] [address] Lymphocytes #/vol (Bld) 1.3 E3/mcL Normal 1.2-3.4 [facility] Comment on above: Order Comment: Order Added by Charlie Expert. Performed By: #### 2 217176 #### VIVIANA RemHemo [address] [place] [address] Lymphocytes/100 WBC (Bld) 15.0 % Low 20.0-55.0 [facility] Comment on above: Order Comment: Order Added by Charlie Expert. Performed By: #### 2 708299 #### VIVIANA RemHemo [address] [place] [address] Vigo Absolute 0.5 E3/mcL Normal 0.0-0.7 [facility] Comment on above: Order Comment: Order Added by Discern Expert. Performed By: #### 2 833852 #### VIVIANA MendozaHemo [address] [place] [address] Monocytes/100 WBC (Bld) 6.0 % Normal 0.0-10.0 [facility] Comment on above: Order Comment: Order Added by Discern Expert. Performed By: #### 2 556032 #### VIVIANA MendozaHemo [address] [place] [address] Neutro Absolute 6.7 E3/mcL High 1.4-6.5 [facility] Comment on above: Order Comment: Order Added by Discern Expert. Performed By: #### 2 579029 #### VIVIANA MendozaHemo [address] [place] [phone] Neutro Auto 77.9 % High 37.0-75.0 [facility] Comment on above: Order Comment: Order Added by Discern Expert. Performed By: #### 2 129462 #### VIVIANA MendozaHemo [facility] [place] [address] CBC w/ Auto Diffon 9 Erythrocyte distribution width Ratio (RBC) 13.5 % Normal 11.5-14.5 [facility] Comment on above: Performed By: #### 2 096952 #### VIVIANA Perezo [address] [place] [address] Hematocrit Volume Fraction (Bld) 43.0 % Normal 36.0-48.0 [facility] Comment on above: Performed By: #### 2 171893 #### VIVIANA MendozaHemo [address] [place], [place] [address] Hemoglobin mass conc (Bld) 14.5 g/dL Normal 12.0-16.0 [facility] Comment on above: Performed By: #### 2 982699 #### VIVIANA MendozaHemo [address] [place] [address] MCH Entitic mass (RBC) 32.4 pg High 27.0-31.0 [facility] Comment on above: Performed By: #### 2 284521 #### VIVIANA MendozaHemo [address] [place] [address] MCHC mass conc (RBC) 33.8 g/dL Normal 33.0-37.0 [facility] Comment on above: Performed By: #### 2 164133 #### VIVIANA RemHemo [address] [place] [address] MCV Entitic volume (RBC) 95.8 fL Normal 78.0-100.0 [facility] Comment on above: Performed By: #### 2 063414 #### VIVIANA RemHemo [address] [place] [address] Platelet mean volume Entitic volume (Bld) 9.0 fL Normal 7.4-11.0 [facility] Comment on above: Performed By: #### 2 285348 #### VIVIANA RemHemo [address] [place] [address] Platelets #/vol (Bld) 207 E3/mcL Normal 130-400 [facility] Comment on above: Performed By: #### 2 962457 #### VIVIANA RemHemo [address] [place] [address] RBC #/vol (Bld) 4.48 E6/mcL Normal 3.90-5.40 [facility] Comment on above: Performed By: #### 2 855024 #### VIVIANA RemHemo [address] [place] [address] WBC #/vol (Bld) 8.6 E3/mcL Normal 3.6-11.0 [facility] Comment on above: Performed By: #### 2 029161 #### VIVIANA RemHemo [address] [place] [phone] CMPon 05-27-2018 Albumin mass conc 4.5 g/dL Normal 3.4-5.0 [facility] Comment on above: Performed By: #### 2 922899 #### VIVIANA [employer] [address] [place] [address] Albumin/Globulin mass ratio 1.5 {ratio} Normal 1.1-1.9 [facility] Comment on above: Performed By: #### 2 083354 #### VIVIANA [employer] [facility] [place] [address] Alk Phos 70 Int._Unit/L Normal 33-110 [facility] Comment on above: Performed By: #### 2 661592 #### VIVIANA [employer] [address] [place] [address] ALT enzyme act/vol 28 Int._Unit/L Normal 7-45 [facility] Comment on above: Performed By: #### 2 873207 #### VIVIANA [employer] [address] [place] [address] Anion gap molar conc 8 mmol/L Low 10-20 [facility] Comment on above: Performed By: #### 2 639751 #### VIVIANA [employer] [address] [place] [address] AST enzyme act/vol 21 Int._Unit/L Normal 9-39 [facility] Comment on above: Performed By: #### 2 116987 #### VIVIANA [employer] [address] [place] [address] Bili Total 0.34 mg/dL Normal 0.00-1.20 [facility] Comment on above: Performed By: #### 2 504886 #### VIVIANA [employer] [address] [place] [address] Calcium mass conc 9.8 mg/dL Normal 8.6-10.3 [facility] Comment on above: Performed By: #### 2 752663 #### [facility] [employer] [address] [place] [address] Chloride molar conc 107 mmol/L Normal 98-107 [facility] Comment on above: Performed By: #### 2 485619 #### VIVIANA [employer] [address] [place] [address] CO2 molar conc 28.0 mmol/L Normal 21.0-32.0 [facility] Comment on above: Performed By: #### 2 678557 #### VIVIANA [employer] [address] [place] [address] Creatinine mass conc 0.8 mg/dL Normal 0.5-1.1 [facility] Comment on above: Performed By: #### 2 457621 #### VIVIANA [employer] [address] [place] [address] Globulin mass conc (S) 3.0 g/dL Normal 2.0-4.0 [facility] Comment on above: Performed By: #### 2 239490 #### VIVIANA [employer] [address] [place] [address] Glucose mass conc 93 mg/dL Normal 70-99 [facility] Comment on above: Performed By: #### 2 087023 #### VIVIANA [employer] [address] [place] [address] Potassium molar conc 4.2 mmol/L Normal 3.5-5.3 [facility] Comment on above: Performed By: #### 2 226045 #### VIVIANA [employer] [address] [place] [address] Protein mass conc 7.6 g/dL Normal 6.4-8.2 [facility] Comment on above: Performed By: #### 2 665664 #### VIVIANA [employer] [address] [place] [address] Sodium molar conc 139 mmol/L Normal 136-145 [facility] Comment on above: Performed By: #### 2 122941 #### VIVIANA [employer] [address] [place] [address] Urea nitrogen mass conc 12 mg/dL Normal 6-23 [facility] Comment on above: Performed By: #### 2 670432 #### VIVIANA [employer] [address] [place] [address] Urea nitrogen/Creatinine mass ratio 15.0 ratio Normal 5.4-30.0 [facility] Comment on above: Performed By: #### 2 338342 #### [facility] [employer] [address] [place] [address] CRPon 05-27-2018 CRP mass conc 0.44 mg/dL Normal 0.00-1.00 [facility] Comment on above: Performed By: #### 2 615139 #### VIVIANA [employer] [address] [place] [address] Sed Rate Automatedon 019 Sed Rate Automated 25 mm/hr Normal [facility] Comment on above: Result Comment: AGE- SPECIFIC REFERENCE RANGES FOR SEDIMENTATION RATE AUTOMATED REFERENCE RANGE - MM/HR AGE MEN WOMEN 0-2 0-2 - PUBERTY 3-13 3-13 PUBERTY - 50 YRS 0-15 0-20 > 50 YRS 0-20 0-30 Performed By: #### 1 [id number] #### VIVIANA Hematology Manual Subsection [address] [place] [address] eGFRon 05-27-2018 GFR/1.73 sq M predicted among non-blacks MDRD vol rate/area (S/P/Bld) mL/min/{1.73_m2} Normal [facility] Comment on above: Order Comment: Order added by Discern Expert. Performed By: #### 1 [id number] #### VIVIANA [employer] [address] [place] [address] U Drug Screenon 03-08-2018 U Amph Scr Negative [facility] Comment on above: Performed By: #### 2 777390 #### VIVIANA RemHemo [address] [place] [address] U Bri Scr Negative [facility] Comment on above: Performed By: #### 2 787188 #### VIVIANA RemHemo [address] [place] [address] U Benzodia Scr Positive [facility] Comment on above: Performed By: #### 2 468492 #### VIVIANA RemHemo [address] [place] [address] U Cannab Scr Negative [facility] Comment on above: Performed By: #### 2 163665 #### VIVIANA RemHemo [address] [place] [address] U Cocaine Scr Negative [facility] Comment on above: Performed By: #### 2 417874 #### VIVIANA RemHemo [address] [place] [address] U Opiate Scr Negative [facility] Comment on above: Performed By: #### 2 178837 #### VIVIANA RemHemo [address] [place] [address] U PCP Scr Negative [facility] Comment on above: Performed By: #### 2 977480 #### VIVIANA RemHemo [address] [place] [address] Lipid Profileon 02-03-2018 Cholesterol in HDL mass conc 48 mg/dL [facility] Comment on above: Performed By: #### 3 [id number] #### VIVIANA [employer] [address] [place] [address] Cholesterol in LDL mass conc 108 mg/dL Normal 0-130 [facility] Comment on above: Performed By: #### 3 [id number] #### VIVIANA [employer] [address] [place] [address] Cholesterol in VLDL mass conc 19 mg/dL Normal [facility] Comment on above: Performed By: #### 3 [id number] #### VIVIANA [employer] [address] [place] [address] Cholesterol mass conc 175 mg/dL Normal 120-200 [facility] Comment on above: Performed By: #### 3 [id number] #### VIVIANA [employer] [address] [place] [address] Triglyceride mass conc 97 mg/dL Normal 0-150 [facility] Comment on above: Result Comment: AGE DESIRABLE BORDELINE HIGH 91 D - 9 Y 0 - 74 75 - 99 > 100 10 - 19 Y 0 - 89 90 - 129 > 130 20 - 24 Y 0 - 114 115 - 149 > 150 > 25 Y 0 - 149 150 - 199 200 - 499 Performed By: #### 3 [id number] #### VIVIANA [employer] [address] [place] [address] Vital Signs Date Time Vital Sign Value Performing Clinician Facility 07-25-2024 09:06-0400 Body temperature 98.8 [degF] Radha Bailon APRN-[employer] PARAPROFESSIONAL Work Phone: [facility] 07-25-2024 09:06-0400 Diastolic blood pressure 82 mm[Hg] Radha Bailon LEVEL VIAL INSIDE GRINDER-[employer] PAR[employer]ESSIONAL Work Phone: [facility] 07-25-2024 09:06-0400 Heart rate 87 /min Radha Bailon LEVEL [employer] PARAPROFESSIONAL Work Phone: [facility] 07-25-2024 09:06-0400 Respiratory rate 14 /min Radha Bailon APRN[employer] PAR[employer]ESSIONAL Work Phone: [facility] 07-25-2024 09:06-0400 SaO2% (BldA) [Mass fraction] 97 % Radha Bailon LEVEL [employer] INSIDE GRINDER[employer] PARAPROFESSIONAL Work Phone: [facility] 07-25-2024 09:06-0400 Systolic blood pressure 160 mm[Hg] Radha Bailon LEVEL VIAL INSIDE GRINDER[employer] PARAPROFESSIONAL Work Phone: [facility] 09-03-2023 13:02-0400 Body height 170.18 cm DENTAL BILLING SPECIALIST-C Jose Farnsworthter DENTAL BILLING SPECIALIST Work Phone: [facility] 09-03-2023 13:02-0400 Body mass index (BMI) [Ratio] 21.4 kg/m2 DENTAL BILLING SPECIALIST-C Jose Rohwer DENTAL BILLING SPECIALIST Work Phone: [facility] 09-03-2023 13:02-0400 Body weight 61.91 kg DENTAL BILLING SPECIALIST-C Jose Rohwer DENTAL BILLING SPECIALIST Work Phone: [facility] 09-03-2023 13:02-0400 Diastolic blood pressure 80 mm[Hg] DENTAL BILLING SPECIALIST-C Jose Rohwer DENTAL BILLING SPECIALIST Work Phone: [facility] 09-03-2023 13:02-0400 Systolic blood pressure 132 mm[Hg] DENTAL BILLING SPECIALIST-C Jose Rohwer DENTAL BILLING SPECIALIST Work Phone: [facility] 09-10-2018 13:23-0400 BMI (Body Mass Index) 23.04 kg/m2 Linda [facility] Work Phone: 09-10-2018 13:23-0400 BP Diastolic 80 mm[Hg] Linda [facility] Work Phone: Comment on above: Location: [facility]; Position: Sitting 09-10-2018 13:23-0400 BP Systolic 148 mm[Hg] Linda Puente [facility] Work Phone: Comment on above: Location: L[facility]; Position: Sitting 09-10-2018 13:23-0400 BSA (Body Surface Area) 1.77 m2 Linda Puente MPEY-Mbmqisutx-Oakqk 204 Work Phone: 09-10-2018 13:23-0400 Height 170.18 cm Linda HARTMANNeurology-Par ma 204 Work Phone: 09-10-2018 13:23-0400 Pulse (Heart Rate) 85 /min Linda Puente MP-Neurology- [place] 204 Work Phone: 09-10-2018 13:23-0400 Pulse Oximetry 96 % Linda Sary PAGETK-Bjrcwodzl-Zbb ma 204 Work Phone: 09-10-2018 13:23-0400 Respiratory Rate 16 /min Linda Puente MP-Neurology-Pa rma 204 Work Phone: 09-10-2018 13:23-0400 Weight 66.74 kg Linda Navaelvira PAGECM-Bwandrchb-Vli ma 204 Work Phone: Encounters Encounter Date Encounter Type Care Provider Facility Start: 10-10-2024 ambulatory Jose Yadav DENTAL BILLING SPECIALIST Fac ility:[facility] Start: 09-07-2024 End: 09-07-2024 ambulatory Jose Yadav DENTAL BILLING SPECIALIST Facility:[facility] Start: 07-25-2024 End: 07-25-2024 Patient encounter procedure Radha Bailon LEVEL VIAL INSIDE [employer] PARAPROFESSIONAL Work Phone: [facility] Comment on above: Eye pain, left (Prim salbador Dx) Start: 07-25-2024 End: 07-25-2024 ambulatory [facility] Start: 02-03-2024 End: 02-03-2024 ambulatory Jose Yadav DENTAL BILLING SPECIALIST Facility:[facility] Start: 02-03-2024 End: 02-03-2024 ambulatory Jose Yadav DENTAL BILLING SPECIALIST Facility:[facility] Start: 01-14-2024 End: 01-14-2024 ambulatory Josesherry Farnsworthter DENTAL BILLING SPECIALIST Facility:[facility] Start: 10-14-2023 End: 10-14-2023 ambulatory Jose Yadav DENTAL BILLING SPECIALIST Facility:[facility] Start: 09-11-2023 Patient encounter procedure DENTAL BILLING SPECIALIST-C Jose Yadav DENTAL BILLING SPECIALIST Work Phone: [facility] Breast [facility] Work Phone: Start: 09-03-2023 End: 09-03-2023 ambulatory DENTAL BILLING SPECIALIST-C Jose Yadav DENTAL BILLING SPECIALIST Work Phone: [facility] Work Phone: Start: 09-03-2023 End: 09-03-2023 Patient encounter procedure DENTAL BILLING SPECIALIST-C Jose Edwardspster DENTAL BILLING SPECIALIST Work Phone: [facility]-Laboratory, Specimen Work Phone: Start: 09-03-2023 End: 09-03-2023 Patient encounter procedure DENTAL BILLING SPECIALIST-C Jose Joshua DENTAL BILLING SPECIALIST Work Phone: [facility] Work Phone: Start: 08-02-2021 End: 08-02-2021 Patient encounter procedure [facility]Labor[facility], [place]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 Start: 07-26-2021 AUDIT Jose Mari ster Work Phone: [facility] 205 DO Work Phone: Start: 07-24-2021 End: 07-24-2021 Patient encounter procedure [facility] Start: 07-19-2021 End: 07-19-2021 Patient encounter procedure [facility] Start: 09-10-2018 Patient encounter procedure Linda Puente MX-Cynglgrlc-Gmftk 204 Work Phone: Start: 08-17-2018 Patient encounter procedure Jose Silverman Rohwer Facility:[id number] Start: 06-29-2018 Patient encounter procedure Jose Yadav Facility:[id number] Start: 05-27-2018 Patient encounter procedure Jose Yadav Facility:9509 Start: 03-08-2018 Patient encounter procedure Jose Yadav Facility:[id number] Start: 03-05-2018 Patient encounter procedure LINDA PUENTE Facility:[id number] Start: 03-05-2018 Patient encounter procedure Jose Yadav Facility:[id number] Start: 02-03-2018 Patient encounter procedure LINDA PUENTE Facility:[id number] Start: 03-03-2017 Patient encounter procedure Linda Puente VI-Pudjglnal-Joat[facility] 204 Work Phone: Procedures Date Procedure Procedure Detail Performing Clinician Start: 09-11-2023 Screening mammography N Layla Yadav DENTAL BILLING SPECIALIST Work Phone: Start: 07-24-2021 Mammography Start: 07-24-2021 Ultrasonography of breast Start: 07-19-2021 Screening mammography Start: 09-10-2018 Pulse Oximetry, Nocturnal Linda Puente Start: 09-10-2018 Follow-up visit Start: 03-05-2018 Follow-up visit Esophagogastroduodenoscopy J mag Puente Payers Date Payer Category Payer Managed Care (Private) [facility] [id number] 2023 Self-pay [id number] 2023 Unknown [id number] 2014 Unknown [id number] 2014 Unknown ANTHEM [id number] 1968 Unknown [id number]. 356 1968 Unknown [id number] .[id number]. 356 1968 Unknown [id number] [id number]. 356 1968 Unknown [id number] [id number]. 356 1968 Unknown [id number] [id number]. 356 1968 Unknown [id number] [id number]. 356 1968 Unknown [id number] 2.16.840.1.521234.3.579.2. 356 1968 Unknown [id number] [id number]. 1243 Unknown [id number] Unknown [facility] Private Health Insurance [id number] Unknown [id number] [id number]. 462 Unknown [id number] [id number]. 462 Unknown [id number] [id number]. 462 Unknown [id number] [id number]. 462 Unknown [id number] [id number]. 462 Unknown [id number] [id number]. 462 Social History Date Type Detail Facility Current every day smoker Current every day smoker [facility] 205 DO Work Phone: Start: 1970 Sex Assigned At Female [facility] Start: 09-03-2023 Tobacco smoking status VTIS Unknown if ever smoked [facility] Start: 1970 Sex assigned at Not on file [facility] Work Phone: Gender identity Not on file [facility] Work Phone: Start: 07-15-2024 End: 07-25-2024 Exposure to SARS-CoV-2 (event) Not sure [facility] NEGATED: Highlighted row - Current every day smoker YG-Vyvpeckdm-YuebkCherelle Flores Work Phone: Medical Equipment Procedure Code Equipment Code Equipment Origin al Text Equipment Identifier Dates fluorescein 0.6 mg ophthalmic strip 1 strip Start: 07-25-2024 Functional Status Date Assessment Result Facility NEGATED: Highlighted row Functional performance Functional status health issues are not documented Disease GG-Jedoztrgv-QwvddCherelle Flores Work Phone: Mental Status Date Assessment Result Facility NEGATED: Highlighted row Cognitive function [Interpretation] Cognitive status health issues are not documented Disease WQ-Yhqbwnsvy-Qasgn Mark Work Phone: History of Present illness Narrative 07-25-2024 HERNÁN Saldaña - 07/25/2024 9:00 AM EDT Note Date & Type Note Facility 07-25-2024 History of Present illness Narrative [facility] NADJA NOTE: Name: Jia French, 54 y.o. CSN:[id number] PCP: HERNÁN Kent ALL: No Known Allergies History: Chief Complaint: Eye Pain (Possible FB in left eye since this AM ) Encounter Date: 07/25/2024 HPI: The history was obtained from the patient. Jia is a 54 y.o. female, who presents with a chief complaint of Eye Pain (Possible FB in left eye since this AM ) reports left-sided eye pain that began upon awakening this a.m. Denies any trauma, discharge, watering from the eye. Does not wear contacts. Has not experienced symptoms of this nature. She does wear glasses and sees Dr. Chowdhury yearly, although has been utilizing [facility] care due to cost deficiency. Denies any change in vision PMHx: Past Medical History: Diagnosis Date Adjustment disorder with anxiety Acute adjustment disorder with anxiety Hypoxemia Hypoxia Other malaise Malaise and fatigue Personal history of other diseases of the respiratory system History of pulmonary emphysema Personal history of other diseases of the respiratory system History of chronic obstructive lung disease Personal history of other diseases of the respiratory system History of pleurisy Spontaneous tension pneumothorax Pneumothorax, spontaneous, tension Current Outpatient Medications Medication Sig Dispense Refill Asmanex HFA 100 mcg/actuation HFA aerosol inhaler TAKE 2 PUFFS INHALED TWICE A DAY NEEDED FOR COUGH/WHEEZE RINSE MOUTH AFTER USE DULoxetine (Cymbalta) [address] capsule Take 1 capsule (30 mg) by mouth early in the morning.. erythromycin (Romycin) 5 mg/gram (0.5 %) ophthalmic ointment Apply to left eye 3 times a day for [address] a 1/2 inch ribbon of ointment into the lower eyelid. 3.5 g 0 Current Facility-Administered Medications Medication Dose Route Frequency Provider Last Rate Last Admin fluorescein 0.6 mg ophthalmic strip 1 strip 1 strip Left Eye Once HERNÁN Saldaña tetracaine (Altacaine) 0.5 % ophthalmic solution 1 drop 1 drop Left Eye Once HERNÁN Saldaña PMSx: Past Surgical History: Procedure Laterality Date ESOPHAGOGASTRODUODENOSCOPY 02/09/2018 Diagnostic Esophagogastroduodenoscopy Fam Hx: No family history on file. SOC. Hx: Social History Socioeconomic History Marital status: Legally Spouse name: Not on file Number of children: Not on file Years of education: Not on file Highest education level: Not on file Occupational History Not on file Tobacco Use Smoking status: Not on file Smokeless tobacco: Not on file Substance and Sexual Activity Alcohol use: Not on file Drug use: Not on file Sexual activity: Not on file Other Topics Concern Not on file Social History Narrative Not on file Social Drivers of Health Financial Resource Strain: Not on file Food Insecurity: Not on file Transportation Needs: Not on file Physical Activity: Not on file Stress: Not on file Social Connections: Not on file Intimate Partner Violence: Not on file Housing Stability: Not on file Vitals: 07/25/24 0906 BP: 160/82 Pulse: 87 Resp: 14 Temp: 37.1 C (98.8 F) SpO2: 97% Physical Exam Vitals and nursing note reviewed. Constitutional: Appearance: Normal appearance. HENT: Head: Normocephalic and atraumatic. Mouth/Throat: Mouth: Mucous membranes are moist. Pharynx: Oropharynx is clear. Eyes: General: Lids are normal. Lids are everted, no foreign bodies appreciated. Vision grossly intact. Gaze aligned appropriately. Left eye: No discharge. Extraocular Movements: Left eye: Normal extraocular motion and no nystagmus. Conjunctiva/sclera: Left eye: No exudate. Pupils: Left eye: Pupil is round, reactive and not sluggish. Fluorescein uptake present. No corneal abrasion. Anatoly exam negative. Funduscopic exam: Left eye: Hemorrhage present. No exudate, AV nicking, arteriolar narrowing or papilledema. Red reflex and venous pulsations present. Slit lamp exam: Left eye: No corneal ulcer or foreign body. Cardiovascular: Rate and Rhythm: Normal rate and regular rhythm. Pulses: Normal pulses. Heart sounds: Normal heart sounds. Pulmonary: Effort: Pulmonary effort is normal. Breath sounds: Normal breath sounds. Abdominal: General: Abdomen is flat. Bowel sounds are normal. Palpations: Abdomen is soft. Musculoskeletal: General: Normal range of motion. Cervical back: Normal range of motion. Skin: General: Skin is warm and dry. Capillary Refill: Capillary refill takes less than 2 seconds. Neurological: Mental Status: She is alert and oriented to person, place, and time. I did personally review Jia's past medical history, surgical history, social history, as well as family history (when relevant). In this case, I also oversaw the her drug management by reviewing her medication list, allergy list, as well as the medications that I prescribed during the UC course and/or recommended as an out-patient (including possible OTC medications such as acetaminophen, NSAIDs , etc). After reviewing the items above, I did look at previous medical documentation, such as recent hospitalizations, office visits, and/or recent consultations with PCP/specialist. SDOH: Another factor that I considered in Jia's care was her Social Determinants of Health (SDOH). During this UC encounter, she did not have social determinants of health. Those SDOH influencing Jia's care are: none COURSE/MEDICAL DECISION MAKING: Jia is a 54 y.o., who presents with a working diagnosis of 1. Eye pain, left Jia was seen today for eye pain. Diagnoses and all orders for this visit: Eye pain, left (Primary) - fluorescein 0.6 mg ophthalmic strip 1 strip - tetracaine (Altacaine) 0.5 % ophthalmic solution 1 drop - erythromycin (Romycin) 5 mg/gram (0.5 %) ophthalmic ointment; Apply to left eye 3 times a day for [address] a 1/2 inch ribbon of ointment into the lower eyelid. Call to schedule an appointment with local eye doctor (Dr. Chowdhury or Pamela) today for further eval. Begin utilizing the erythromycin until can be seen at ophthalmology Plan of care reviewed with patient. If symptoms change and/or worsen will follow-up with primary care provider, return to urgent care, or go to the nearest emergency department for further evaluation. Patient states understanding and is agreeable with plan of care. Radha Bailon APRN, BRANDON Advanced Practice Provider [facility] Please note: While the patient may or may not have received printed discharge paperwork, all relevant medical findings, test results, and treatment details are accessible through the electronic medical record system. The patient is encouraged to review their chart via the patient portal for comprehensive information and follow-up instructions. documented in this encounter [facility] Work Phone: Clinical Note 09-03-2023 Note Date & Type Note Facility 09-03-2023 Note [facility] Pap Smear Specimen Adequacy September 03, 2023 3:04pm Comment . Satisfactory for evaluation. No endocervical component is identified. Comment on above: Satisfactory for stanton luation. No endocervical component is identified. Evaluation note Note Date & Type Note Facility Evaluation note No assessment information availa ble [facility] Work Phone: Evaluation note Note Date & Type Note Facility Evaluation note Diagnosis Onset Date Anxiety acute Nicotine dependence acute Encounter for routine gyneco logical examination noneactive [facility] Work Phone: Evaluation note Note Date & Type Note Facility Evaluation note Diagnosis Eye pain, left- Primary documented in this encounter [facility] Work Phone: Instructions Note Date & Type Note Facility Instructions Name Instructions not documented KE-Ewsstamsf-Esxuo 204 Work Phone: Summary Purpose Family History No Family History Records Found Mother Name Dates Details Family history of heart fail ure(V17.49, Z82.49) Status:Active Family history of autoimmune disorder(V19.8, Z83.2) Status:Active Mother Name Dates Details Family history of heart fail ure(V17.49, Z82.49) Status:Active Family history of autoimmune disorder(V19.8, Z83.2) Status:Active Mother Name Dates Details Family history of heart fail ure(V17.49, Z82.49) Status:Active Family history of autoimmune disorder(V19.8, Z83.2) Status:Active Unknown Family Member Name Dates Details Family history of heart fail ure: Mother(V17.49, Z82.49) Status:Active Family history of autoimmune disorder: Mother(V19.8, Z83.2) Status:Active Relationship Condition Age at Onset Recorded Date/T mariela mother Lupus Unknown Advance Directives No Advanced Directives Records FoundNo Advanced Directives Records FoundNo Advanced Directives Records FoundNo Advanced Directives Records FoundNo Advanced Directives Records FoundNo Advanced Directives Records Found Chief Complaint and Reason for Visit Chief Complaint SCREENING ABN MAMM LT BREAST Chief Complaint Annual (SCREW DOWN) SCREENING Reason for Visit Anxiety Nicotine dependence Encounter for routine gynecological examination Additional Source Comments INFORMATION SOURCE (unrecogn ized section and content) DATE CREATED AUTHOR 08/19/2018 [facility] DATE CREATED AUTHOR AUTHOR'S ORGANIZ ATION 09/24/2018 [employer] DATE CREATED AUTHOR AUTHOR'S ORGANIZ ATION 10/07/2018 [facility] DATE CREATED AUTHOR AUTHOR'S ORGANIZ ATION 10/19/2018 [facility] DATE CREATED AUTHOR AUTHOR'S ORGANIZ ATION 07/25/2024 [facility] DATE CREATED AUTHOR AUTHOR'S ORGANIZ ATION 10/06/2024 [facility] Goals (unrecognized section and content) Goals may be documented in a n alternate sectionGoals may be documented in an alternate sectionGoals may be documented in an alternate section Care Teams (unrecognized sec tion and content) Team Status: Active Member Role Status Dates Jose Yadav DENTAL BILLING SPECIALIST, DENTAL BILLING SPECIALIST-C Family Provider Active Jose Yadav DENTAL BILLING SPECIALIST, DENTAL BILLING SPECIALIST-C Primary Care Provider Active Team Status: Inactive Member Role Status Dates Jose Yadav DENTAL BILLING SPECIALIST, DENTAL BILLING SPECIALIST-C Primary Care Provider, Refer ring Provider Active HEIDY Brady Attending Provider Active Team Status: Active Member Role Status Dates Jose Yadav DENTAL BILLING SPECIALIST, DENTAL BILLING SPECIALIST-C Primary Care Provider Active HEIDY Brady Attending Provider, Referring Pr ovider Active Team Status: Inactive Member Role Status Dates Jose Yadav DENTAL BILLING SPECIALIST, DENTAL BILLING SPECIALIST-C Primary Care Provider Active HEIDY Brady Attending Provider, Referring Pr ovider Active Knowledge Analyst Relationship Specialty Start Date End Date Jose Yadav, [employer] PARAPROFESSIONAL [address] [place] [address] [place] [address] PCP - General 05/04/17 Reason for Visit (unrecogniz ed section and content) Reason Comments Eye Pain Possible FB in left eye since this AM FOR RECORDS PERTAINING TO PATIENTS WHO ARE OR HAVE BEEN ENROLLED IN A CHEMICAL DEPENDENCY/SUBSTANCEABUSE PROGRAM, SOME INFORMATION MAY BE OMITTED. This clinical summary was aggregated from multiple sources. Caution should be exercised in using it in the provision of clinical care. This summary normalizes information from multiple sources, and as a consequence, information in this document may materially change the coding, format and clinical context of patient data. In addition, data may be omitted in some cases. CLINICAL DECISIONS SHOULD BE BASED ON THE PRIMARY CLINICAL RECORDS. [employer] provides no warranty or guarantee of the accuracy or completeness of information in this document.
== END | disposition home or self-care (01) ==
LOC: OPBI 15:51
PROVIDERS: PCP Nurse Practitioner Family; Referring Provider Nurse Practitioner Family; Visit Provider Nurse Practitioner Family
DX: Z12.31 Encounter for screening mammogram for malignant neoplasm of breast (principal); Z12.2 Encounter for screening for malignant neoplasm of respiratory organs; F17.200 Nicotine dependence, unspecified, uncomplicated
CPT/HCPCS: 71271; 77063; 77067